=== PATIENT | female | born 1985 | race Caucasian/White ===

== ENCOUNTER 2019-11-29 04:45 | Emergency (ER) | payer BC, OTHER ==
[2019-11-29 06:08] LABS: Absolute Lymphocytes (CBC) 1.9 K/uL (0.7-4.9); Basophils % 0.9 % (0-1.3); Hematocrit 39.2 % (36.0-45.0); Lymphocytes % 20.4 % (15.3-44.8); MPV 8.2 fL (7.6-11.3); RBC Red Blood Cell Count 4.52 M/uL (3.86-4.86)
[2019-11-29 06:35] LABS: ALT/SGPT 17 U/L (12-78); AST/SGOT 13 U/L (15-37); Albumin 4.1 g/dL (3.4-5.0); Alkaline Phosphatase 73 U/L (45-117); BUN Blood Urea Nitrogen 12 mg/dL (7-18); Bicarbonate 26 mmol/L (21-32); Bilirubin Direct < 0.1 mg/dL (0-0.2); Bilirubin Total 0.2 mg/dL (0.2-1.0); Glucose Level 110 mg/dL (74-106); Lipase 192 U/L (73-393); Potassium 3.8 mmol/L (3.5-5.1); Protein, Total 7.9 g/dL (6.4-8.2); Sodium Level 141 mmol/L (136-145)
[2019-11-29 07:09] LABS: Urine Blood 2+ (NEG); Urine Glucose NEGATIVE (NEG); Urine Protein NEGATIVE (NEG); Urine pH 5.5 (5.0-7.0)
[2019-11-29] MEDS ORDERED: ONDANSETRON 4 MG/2 ML VIAL ONE ×2 (07:37→09:13)
[2019-11-29] MEDS ORDERED: MORPHINE 4 MG/ML SYR ONE ×2 (07:37→09:13)
--- NOTE | 2019-11-29 08:47 | RAD REPORT ---
EXAM DESCRIPTION: US - Abdomen Exam Limited - 11/29/2019 7:35 am CLINICAL HISTORY: ABD PAIN COMPARISON: No comparisons FINDINGS: The gallbladder demonstrates tiny stones in the gallbladder fundal region. No pericholecys tic fluid or gallbladder wall thickening. The common bile duct is normal measuring 3 mm. The liver demonstrates no findings of intrahepatic biliary dilatation. IMPRESSION: Cholelithiasis without sonographic findings of acute cholecystitis.
--- NOTE | 2019-11-29 08:48 | RAD REPORT ---
EXAM DESCRIPTION: CTAbdomen Pelvis W Contrast - 11/29/2019 7:11 am CLINICAL HISTORY: Abdominal pain. ABD PAIN COMPARISON: CT ABD PELVIS W CONTRAST dated 03/26/2015; CT ABD PELVIS W CONTRAST dated 03/19/2014 TECHNIQUE: Biphasic CT imaging of the abdomen and pelvis was performed with 100 ml non-ionic IV cont rast. All CT scans are performed using dose optimization technique as appropriate and may include automated exposure control or mA/KV adjustment according to patient size. FINDINGS: The lung bases are clear.Cholelithiasis The liver, spleen, pancreas, adrenal glands and kidneys are within normal limits. No bowel obstruction, free air, free fluid or abscess. The appendix is normal. No evidence of signi ficant lymphadenopathy. No suspicious bony findings. IMPRESSION: Cholelithiasis.
--- NOTE | 2019-11-29 08:57 | ER ---
Nurse's Notes [facility] Name: Qing Londono Age: 34 yrs Sex: Female : 1985 Arrival Date: 11/29/2019 Time: 04:47 Bed 6 Private MD: Diagnosis: Cholelithiasis Presentation: 11/28 05:42 Chief complaint: Patient states: C/O RUQ pain nightly that started three days ago. wh Associated symptoms nausea, vomiting and diarrhea. Pt also with cough and states is positive for Covid. Coronavirus screen: Surgical mask placed on patient. Patient moved to private room, placed in contact and droplet isolation with eye protection until further assessment. Patient reports a cough. Patient denies shortness of breath or difficulty breathing. Patient denies measured and/or subjective temperature greater than 100.4F prior to today's visit. Patient denies travel on a cruise ship or to a country the [facility] currently lists as an affected area. Patient reports contact with known and/or suspected case of COVID-19. Ebola Screen: Patient negative for fever greater than or equal to 101.5 degrees Fahrenheit, and additional compatible Ebola Virus Disease symptoms Patient denies exposure to infectious person. Initial Sepsis Screen: Does the patient meet any 2 criteria? No. Patient's initial sepsis screen is negative. Does the patient have a suspected source of infection? Yes: Acute abdominal pain. Risk Assessment: Do you want to hurt yourself or someone else? Patient reports no desire to harm self or others. Onset of symptoms was November 29, 2019. 05:42 Method Of Arrival: Ambulatory 05:42 Acuity: JODIE 3 Triage Assessment: 05:47 GI: Reports upper abdominal pain, bloating, nausea, vomiting. 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 - Social history:: Smoking status: Patient uses alcohol, occasionally. Patient/guardian denies using. Screenin:45 Abuse screen: Denies threats or abuse. Denies injuries from another. Nutritional screening: No deficits noted. Tuberculosis screening: No symptoms or risk factors identified. Fall Risk None identified. Assessment: 05:46 General: Appears in no apparent distress. Behavior is calm, cooperative, appropriate for age. Pain: Complains of pain in right upper quadrant Pain does not radiate. Pain currently is 8 out of 10 on a pain scale. Quality of pain is described as sharp, Pain began 2-3 days ago. Neuro: Level of Consciousness is awake, alert, obeys commands, Oriented to person, place, time, situation, Appropriate for age. Cardiovascular: Capillary refill < 3 seconds. Respiratory: Airway is patent Respiratory effort is even, unlabored, Respiratory pattern is regular, symmetrical. GI: Abdomen is flat, non-distended, Abd is soft Abdomen is tender to palpation in right upper quadrant Reports upper abdominal pain, bloating, diarrhea, nausea, vomiting. : No deficits noted. EENT: No deficits noted. Derm: Skin is intact, is healthy with good turgor, Skin is pink, warm \T\ dry. normal. Musculoskeletal: Circulation, motion, and sensation intact. 07:04 Reassessment: Patient appears in no apparent distress at this time. No changes from previously documented assessment. Patient and/or family updated on plan of care and expected duration. Pain level reassessed. Patient is alert, oriented x 3, equal unlabored respirations, skin warm/dry/pink. 08:00 Reassessment: Patient appears in no apparent distress at this time. Patient and/or em family updated on plan of care and expected duration. Pain level reassessed. Patient is alert, oriented x 3, equal unlabored respirations, skin warm/dry/pink. Vital Signs: 05:42 BP 149 / 99; Pulse 58; Resp 18; Temp 98.3; Pulse Ox 97% ; Weight 103.42 kg; Height 5 wh ft. 6 in. (167.64 cm); Pain 8/10; 07:04 BP 143 / 86; Pulse 55; Resp 18; Pulse Ox 99% on R/A; 07:30 BP 142 / 91; Pulse 57; Resp 18; Pulse Ox 99% on R/A; Pain 8/10; em 05:42 Body Mass Index 36.80 (103.42 kg, 167.64 cm) ED Course: 04:47 Patient arrived in ED. cl3 05:28 Zach Clayton is Primary Nurse. wh 05:45 Triage completed. wh 05:47 Arm band placed on right wrist. wh 05:48 Patient has correct armband on for positive identification. Placed in gown. Bed in low wh position. Call light in reach. Side rails up X 1. Pulse ox on. NIBP on. 05:50 Inserted saline lock: 20 gauge in left antecubital area, using aseptic technique. Blood rr5 collected. 06:00 Deepa Raymond [facility]C [facility]. kb 06:00 Devan Salamanca MD is Attending Physician. kb 07:11 CT Abd/Pelvis - IV Contrast Only In Process Unspecified. EDMS 07:35 US Abdomen Limited In Process Unspecified. EDMS 09:16 No provider procedures requiring assistance completed. IV discontinued, intact, em bleeding controlled, No redness/swelling at site. Pressure dressing applied. Administered Medications: 07:35 Drug: Zofran (Ondansetron) 4 mg Route: IVP; Site: left antecubital; em 08:10 Follow up: Response: No adverse reaction; Marked relief of symptoms em 07:37 Drug: morphine 4 mg Route: IVP; Site: left antecubital; em 08:10 Follow up: Response: No adverse reaction; Marked relief of symptoms; Pain is decreased; em RASS: Alert and Calm (0) 09:10 Drug: Zofran (Ondansetron) 4 mg Route: IVP; Site: left antecubital; em 09:18 Follow up: Response: Medication administered at discharge. em 09:12 Drug: morphine 4 mg Route: IVP; Site: left antecubital; em 09:17 Follow up: Response: Medication administered at discharge. em Outcome: 08:57 Discharge ordered by . kb 09:16 Discharged to home ambulatory. em 09:16 Condition: good 09:16 Discharge instructions given to patient, Instructed on discharge instructions, follow up and referral plans. medication usage, Demonstrated understanding of instructions, follow-up care, medications, Prescriptions given X 2. 09:24 Patient left the ED. em Addendum: 12/02/2019 15:40 Addendum: COVID-19 Result: Negative result given to RN to notify pt. Contacted by: Gideon Hicks RN. Notified pt of negative COVID 19 swab results. Pt advised that even with a negative test result they should remain in isolation until symptom free for 3 days without medication. Pt also advised to return to the ED for worsening symptoms. Signatures: Dispatcher [employer] Deepa Espino FNP-C FNP-Lillian Rodriguez, RN RN dm5 Papito Davis, RN Zach Chi Madan Lua RN RN rr5 Chad Mancini cl3 Corrections: (The following items were deleted from the chart) 11/28 05:47 05:46 GI: Abdomen is flat, non-distended, Abd is soft Abdomen is tender to palpation in right upper quadrant
--- NOTE | 2019-11-29 08:57 | EDPHYS ---
Physician Documentation [facility] Name: Qing Londono Age: 34 yrs Sex: Female : 1985 Arrival Date: 11/29/2019 Time: 04:47 Bed 6 Private MD: ED Physician Devan Salamanca HPI: 11/28 07:18 This 34 yrs old Female presents to ER via Ambulatory with complaints of Side kb Pain, Nausea/Vomiting. 07:50 The patient presents with abdominal pain in the right upper quadrant, right lower kb quadrant. Onset: The symptoms/episode began/occurred 3 day(s) ago. The symptoms do not radiate. Associated signs and symptoms: Pertinent positives: nausea, vomiting, and diarrhea. The symptoms are described as intermittent. Modifying factors: The symptoms are alleviated by nothing, the symptoms are aggravated by nothing. Severity of pain: At its worst the pain was moderate in the emergency department the pain is unchanged. The patient has not experienced similar symptoms in the past. The patient has not recently seen a physician. Pt reports right sided abd pain that started 3 days ago, has been worse at night. Last night pain was constant and never went away so she came in. Has had diarrhea for 3 days, nausea and vomiting started last night. Pt also reports slight cough, is COVID positive and she has been caring for him. [employer]: 05:47 LMP 11/29/2019 Historical: - Allergies: 05:45 No Known Allergies; - Home Meds: 05:45 None [Active]; - PMHx: 05:45 None; - PSHx: 05:45 Tubal ligation; - Immunization history:: Adult Immunizations up to date. - Social history:: Smoking status: Patient uses alcohol, occasionally. Patient/guardian denies using. ROS: 07:53 Constitutional: Negative for fever, chills, and weight loss, Neck: Negative for injury, kb pain, and swelling, Cardiovascular: Negative for chest pain, palpitations, and edema, Back: Negative for injury and pain, MS/Extremity: Negative for injury and deformity, Skin: Negative for injury, rash, and discoloration, Neuro: Negative for headache, weakness, numbness, tingling, and seizure. 07:53 Respiratory: Positive for cough, Negative for dyspnea on exertion, hemoptysis, orthopnea, pleurisy, shortness of breath, sputum production, wheezing. 07:53 Abdomen/GI: Positive for abdominal pain, nausea, vomiting, and diarrhea. Exam: 07:53 Constitutional: This is a well developed, well nourished patient who is awake, alert, kb and in no acute distress. Head/Face: Normocephalic, atraumatic. Chest/axilla: Normal chest wall appearance and motion. Nontender with no deformity. No lesions are appreciated. Cardiovascular: Regular rate and rhythm with a normal S1 and S2. No gallops, murmurs, or rubs. Normal PMI, no JVD. No pulse deficits. Respiratory: Lungs have equal breath sounds bilaterally, clear to auscultation and percussion. No rales, rhonchi or wheezes noted. No increased work of breathing, no retractions or nasal flaring. Skin: Warm, dry with normal turgor. Normal color with no rashes, no lesions, and no evidence of cellulitis. MS/ Extremity: Pulses equal, no cyanosis. Neurovascular intact. Full, normal range of motion. Neuro: Awake and alert, GCS 15, oriented to person, place, time, and situation. Cranial nerves II-XII grossly intact. Motor strength 5/5 in all extremities. Sensory grossly intact. Cerebellar exam normal. Normal gait. 07:53 Abdomen/GI: Inspection: abdomen appears normal, Bowel sounds: normal, in all quadrants, Palpation: soft, in all quadrants, moderate abdominal tenderness, in the right upper quadrant and right lower quadrant. Vital Signs: 05:42 BP 149 / 99; Pulse 58; Resp 18; Temp 98.3; Pulse Ox 97% ; Weight 103.42 kg; Height 5 wh ft. 6 in. (167.64 cm); Pain 8/10; 07:04 BP 143 / 86; Pulse 55; Resp 18; Pulse Ox 99% on R/A; wh 07:30 BP 142 / 91; Pulse 57; Resp 18; Pulse Ox 99% on R/A; Pain 8/10; em 05:42 Body Mass Index 36.80 (103.42 kg, 167.64 cm) MDM: 06:01 Patient medically screened. kb 07:52 Data reviewed: vital signs, nurses notes. Data interpreted: Pulse oximetry: on room air kb is 99 %. Interpretation: normal. 08:56 Counseling: I had a detailed discussion with the patient and/or guardian regarding: the kb historical points, exam findings, and any diagnostic results supporting the discharge/admit diagnosis, lab results, radiology results, the need for outpatient follow up, a general surgeon, to return to the emergency department if symptoms worsen or persist or if there are any questions or concerns that arise at home. 11/28 05:39 Order name: Basic Metabolic Panel; Complete Time: 06:39 rr5 11/28 05:39 Order name: CBC with Diff; Complete Time: 06:13 rr5 11/28 05:39 Order name: Hepatic Function; Complete Time: 06:39 rr5 11/28 05:39 Order name: Lipase; Complete Time: 06:39 rr5 11/28 05:48 Order name: Urine Dipstick--Ancillary (enter results); Complete Time: 07:13 mw2 11/28 05:48 Order name: Urine --Ancillary (enter results); Complete Time: 07:13 mw2 11/28 05:39 Order name: IV Saline Lock; Complete Time: 05:48 rr5 11/28 06:19 Order name: CT Abd/Pelvis - IV Contrast Only; Complete Time: 08:56 kb 11/28 06:19 Order name: US Abdomen Limited; Complete Time: 08:56 kb 11/28 07:34 Order name: COVID-19 ss 11/28 05:39 Order name: Labs collected and sent; Complete Time: 05:48 rr5 11/28 05:42 Order name: Urine Dipstick-Ancillary (obtain specimen); Complete Time: 05:48 wh 11/28 05:42 Order name: Urine Test (obtain specimen); Complete Time: 05:48 wh Administered Medications: 07:35 Drug: Zofran (Ondansetron) 4 mg Route: IVP; Site: left antecubital; em 08:10 Follow up: Response: No adverse reaction; Marked relief of symptoms em 07:37 Drug: morphine 4 mg Route: IVP; Site: left antecubital; em 08:10 Follow up: Response: No adverse reaction; Marked relief of symptoms; Pain is decreased; em RASS: Alert and Calm (0) 09:10 Drug: Zofran (Ondansetron) 4 mg Route: IVP; Site: left antecubital; em 09:18 Follow up: Response: Medication administered at discharge. em 09:12 Drug: morphine 4 mg Route: IVP; Site: left antecubital; em 09:17 Follow up: Response: Medication administered at discharge. em Disposition: 11/29 01:35 Co-signature as Attending Physician, Devan Salamanca MD. [email or web address] Disposition: 11/29/19 08:57 Discharged to Home. Impression: Cholelithiasis. - Condition is Stable. - Discharge Instructions: Cholelithiasis, [id number]. - Prescriptions for Bentyl 20 mg Oral Tablet - take 1 tablet by ORAL route every 6 hours As needed; 20 tablet. Zofran 4 mg Oral Tablet - take 1 tablet by ORAL route every 6 hours As needed; 20 tablet. - Medication Reconciliation Form, Thank You Letter, Antibiotic Education, Prescription Opioid Use form. - Follow up: Emergency Department; When: As needed; Reason: Worsening of condition. Follow up: Private Physician; When: 2 - 3 days; Reason: Recheck today's complaints, Continuance of care, Re-evaluation by your physician. Signatures: Dispatcher [employer] EDDeepa Schroeder, FRONT CLERK-C FRONT CLERK-CkPapito Camara, RN RN Zach Clayton Raymond RN RN 5 Devan Salamanca MD MD [facility] [place] Corrections: (The following items were deleted from the chart) 11/28 07:53 07:50 Pt reports right sided abd pain that started 3 days ago, has been worse at night. kb Last night pain was constant and never went away so she came in. Has had diarrhea for 3 days, nausea and vomiting started last night. kb 09:24 08:57 11/29/2019 08:57 Discharged to Home. Impression: Cholelithiasis. Condition is em Stable. Discharge Instructions: Cholelithiasis, [id number]. Prescriptions for Bentyl 20 mg Oral Tablet - take 1 tablet by ORAL route every 6 hours As needed; 20 tablet, Zofran 4 mg Oral Tablet - take 1 tablet by ORAL route every 6 hours As needed; 20 tablet. and Forms are Medication Reconciliation Form, Thank You Letter, Antibiotic Education, Prescription Opioid Use. Follow up: Emergency Department; When: As needed; Reason: Worsening of condition. Follow up: Private Physician; When: 2 - 3 days; Reason: Recheck today's complaints, Continuance of care, Re-evaluation by your physician. kb
[2019-11-29 09:32] VITALS: TEMP 98.3
[2019-11-29 09:33] VITALS: O2SAT 99
[2019-11-29 09:35] VITALS: BP 142/91
== END 2019-11-29 09:24 | disposition home or self-care (01) ==
LOC: ER 04:45
DX: K80.20 Calculus of gallbladder without cholecystitis without obstruction (principal); Z20.828 Contact with and (suspected) exposure to other viral communicable diseases
CPT/HCPCS: 85025; 80048; 36415; 81025; 80076; 81003; 83690; 74177; 76705; 96375; 96374; 99284; Q9967; J2405 ×2

== ENCOUNTER 2019-12-06 12:55 | Observation (INO) | payer OTHER ==
[2019-12-06] MEDS ORDERED: FENTANYL CITR 100 MCG/2 ML ONE ×2 (13:33→14:42)
[2019-12-06] MEDS ORDERED: dexAMETHasone 10 MG/ML VIAL ONE (13:33)
[2019-12-06] MEDS ORDERED: MIDAZOLAM HCL 2 MG/2 ML INJ ONE (13:33)
[2019-12-06] MEDS ORDERED: propofoL 200 MG/20 ML VIAL IV ONE (13:33)
[2019-12-06] MEDS ORDERED: LIDOCAINE 2% MPF 5 ML VIAL ONE (13:34)
[2019-12-06] MEDS ORDERED: ROCURONIUM 50 MG/5 ML VIAL IV ONE (13:35)
[2019-12-06] MEDS ORDERED: ONDANSETRON 4 MG/2 ML VIAL ONE ×2 (13:35→15:54)
[2019-12-06] MEDS ORDERED: Ringers Lactate 1,000 ML IV ONE ×2 (13:39→15:38)
[2019-12-06] MEDS ORDERED: CEFOXITIN/SWI 1gm 1 GM/10 ML SYR ONE (13:39)
--- NOTE | 2019-12-06 13:55 | P.HP ---
Date of Service: 12/06/19 PC: This 34-year-old female presents for a laparoscopic cholecystectomy with cholangiogram. HPC: Patient has been experiencing what upper quadrant abdominal pain, radiating into her back, for the last 7 days. Seen in the emergency room last week or workup showed she had cholelithiasis but no obvious evidence of cholelithiasis. Since then she has been in continuous pain, unrelieved by the medication she was discharged from the ER with. I saw her today in my office and suspect she may have a stone stuck in here Elissa's pouch. Ultrasound documents stones as the CT from last Monday. PMH: Negative PSHx: Previous tubal ligation SOC: No known allergies SYS REVIEW: No cough, wheeze, shortness of breath. No chest pain or palpitations. No urinary complaints O/E awake alert very uncomfortable vital signs are stable HEENT: Not jaundiced Chest: Air entry equal bilaterally ABD: Tender in the right upper quadrant LOCO: Intact DATA: Has documented gallstones IMPRESSION: Cholelithiasis with biliary colic PLAN: I will take her the operating room for laparoscopic cholecystectomy with cholangiogram. The risks of this procedure have been discussed. The possibility of bleeding, infection, injury to bile ducts blood vessels intestines has been described. The possible need for an open and/or further surgeries and procedures was described. She understands and wants us to proceed.
[2019-12-06] MEDS ORDERED: GLYCOPYRROLATE 0.2 MG/ML SYR ONE (14:52)
[2019-12-06] MEDS ORDERED: NEOSTIGMINE 1 MG/ML -5 ML ONE (14:52)
--- NOTE | 2019-12-06 15:17 | P.OP ---
Preoperative diagnosis: Cholecystitis with cholelithiasis Postoperative diagnosis: The same Primary procedure: Laparoscopic cholecystectomy Secondary procedure: Cholangiogram Anesthesia: General Estimated blood loss: Less than 10 cc Specimen: 1 gallbladder and contents Operative Technique: The patient brought the operating room placed supine on the table. After the induction of adequate general endotracheal anesthesia, the area of the abdomen was prepped with a DuraPrep solution, and she was draped in usual aseptic manner. A subumbilical incision was made. This brought down through the skin and subcutaneous tissue. The Visiport was now used to enter the peritoneal cavity and created pneumoperitoneum to approximately 12 mm of mercury. The placement was then placed in reverse Trendelenburg and rolled to the left. Under direct vision a 5 mm trocar was placed in the upper midline, and 2 other 5 mm trocars on the right lateral side of the abdomen. On visualization of the right upper quadrant we could see a large redundant gallbladder. It appeared to be injected with evidence of acute inflammation. A grasper was placed on the fundus of the gallbladder. Another was placed down by Elissa's pouch. Using gentle dissection and judicious use of the electro cautery we were able to dissect down and expose the cystic duct and artery. Having obtained the critical view a clip was placed between the gallbladder and the cystic duct. An opening was made into the cystic duct through which we attempted to obtain an intraoperative cholangiogram. Insertion of a catheter into the cystic duct was difficult due to the amount of the bowel so the patient had. We were finally able to wedge it in place and obtained a cholangiogram. The cholangiogram demonstrated the extrahepatic biliary tree however did not show flow contrast into the duodenum. A 2nd attempt was made however I cannot generate enough pressure due to the tenuous insertion of the cholangiocatheter. We did not see any obvious filling defects, no round off of the extrahepatic biliary tree. Hence this portion of the procedure was concluded and the catheter was removed. Attention was now turned towards the cystic duct. 2 clips were placed distally to control the cystic duct. Another clip was placed across the cystic artery which was now divided. Dissection of the gallbladder was time to remove it from the liver bed. It was then placed into an Endo-Catch and brought out through the umbilical trocar site. Once again we inspected the peritoneal cavity. No other gross intra-abdominal pathology was noted. The air the right upper quadrant was aspirated of the irrigating effluent and extravasated contrast that had pooled during the case. The liver bed was inspected to ensure adequate hemostasis. At this point attention was turned towards the emboli kiss with a 5 mm camera in the upper midline. The facile defect was approximated using the Endo Close an absorbable suture. At this point the pneumoperitoneum was collapsed, the trocars removed, and the suture tied. Tonya were then applied to the skin. At the end of the procedure she was stable when sent to the recovery room. Needle sponge instrument count were correct. No drains were placed. Complications: None Transferred to: Recovery Room Condition: Good
[2019-12-06] MEDS: HYDROMORPHONE HCL 2 MG/ML inj ONE ×4 (15:20→15:35)
[2019-12-06] MEDS ORDERED: KETOROLAC 30 MG/ML INJ ONE ×2 (15:31)
[2019-12-06] MEDS: HYDROMORPHONE HCL 1 MG/ML INJ ONE ×2 (15:46→15:51)
--- NOTE | 2019-12-06 16:09 | RAD REPORT ---
EXAM DESCRIPTION: RAD - Cholangiogram Oper-Xray Or - 12/06/2019 4:00 pm CLINICAL HISTORY: LAP ARELIS WITH IOC COMPARISON: Abdomen Exam Limited dated 11/29/2019 FINDINGS: Cystic duct injection was performed by operating surgeon. Common duct is not dilated. No r etained stone. Total fluoro time: 0.1 minutes. Three fluoroscopic images are submitted. IMPRESSION: No retained common duct stone seen.
[2019-12-06 17:10] VITALS: BMI 37.9
[2019-12-06] MEDS: NA CHLORIDE 0.9% 1,000 ML IV SCH ×2 (17:13→23:30)
[2019-12-06] MEDS: MORPHINE 4 MG/ML SYR IV PRN ×3 (17:14→23:07)
[2019-12-06] MEDS: ONDANSETRON 4 MG/2 ML VIAL IV PRN (19:18)
[2019-12-06] MEDS: HYDROCODONE/APAP 7.5/325 MG TAB PO PRN (19:21)
[2019-12-06 23:55] VITALS: O2SAT 95
[2019-12-07] MEDS: MORPHINE 4 MG/ML SYR IV PRN ×3 (01:04→08:13)
[2019-12-07] MEDS: ONDANSETRON 4 MG/2 ML VIAL IV PRN (01:05)
[2019-12-07] MEDS: HYDROCODONE/APAP 7.5/325 MG TAB PO PRN (06:38)
[2019-12-07] MEDS: NA CHLORIDE 0.9% 1,000 ML IV SCH (06:45)
[2019-12-07 12:08] VITALS: BP 127/73; TEMP 98.2
== END 2019-12-07 12:12 | disposition home or self-care (01) ==
LOC: OR 12:55 → 2ND 16:42
PROVIDERS: ADMIT Surgery; ATTEND Surgery
PROC: BF0CYZZ Plain Radiography of Hepatobiliary System, All using Other Contrast (ICD-10-PCS; 2019-12-06)
PROC: 0FT44ZZ Resection of Gallbladder, Percutaneous Endoscopic Approach (ICD-10-PCS; principal; 2019-12-06 13:00)
DX: K80.10 Calculus of gallbladder with chronic cholecystitis without obstruction (principal)
CPT/HCPCS: 81025; 88304; 74300; 47563; U0002; J2704; J2250; J1170 ×2; J3010 ×2; J1100; J2710; J7120 ×2; J7030 ×3; J2405 ×4; G0379; G0378 ×3

== ENCOUNTER 2020-02-26 17:56 | Inpatient (IN) | payer OTHER ==
[2020-02-26 18:42] LABS: Absolute Lymphocytes (CBC) 1.8 K/uL (0.7-4.9); Basophils % 0.4 % (0-1.3); Hematocrit 36.1 % (36.0-45.0); Lymphocytes % 11.9 % (15.3-44.8)
[2020-02-26] MEDS ORDERED: KETOROLAC 30 MG/ML INJ ONE (18:44)
[2020-02-26 19:01] LABS: ALT/SGPT 15 U/L (12-78); AST/SGOT 10 U/L (15-37); Albumin 3.9 g/dL (3.4-5.0); Alkaline Phosphatase 76 U/L (45-117); BUN Blood Urea Nitrogen 10 mg/dL (7-18); Bicarbonate 29 mmol/L (21-32); Bilirubin Direct < 0.1 mg/dL (0-0.2); Bilirubin Total 0.3 mg/dL (0.2-1.0); Glucose Level 91 mg/dL (74-106); Lipase 172 U/L (73-393); Potassium 3.9 mmol/L (3.5-5.1); Protein, Total 7.9 g/dL (6.4-8.2); Sodium Level 142 mmol/L (136-145)
--- NOTE | 2020-02-26 19:33 | RAD REPORT ---
EXAM DESCRIPTION: CTAbdomen Pelvis W Contrast - 02/26/2020 7:18 pm CLINICAL HISTORY: Abdominal pain. ABD PAIN COMPARISON: Abdomen Pelvis W Contrast dated 11/29/2019; CT ABD PELVIS W CONTRAST dated 03/26/2015; C T ABD PELVIS W CONTRAST dated 03/19/2014 TECHNIQUE: Biphasic CT imaging of the abdomen and pelvis was performed with 100 ml non-ionic IV cont rast. All CT scans are performed using dose optimization technique as appropriate and may include automated exposure control or mA/KV adjustment according to patient size. FINDINGS: The lung bases are clear.Cholecystectomy clips. The liver, spleen, pancreas, adrenal glands and kidneys are within normal limits. No bowel obstruction, free air, free fluid or abscess. There is moderate inflammation surrounding pro minent diverticula in the descending colon region. The appendix is normal. No evidence of significan t lymphadenopathy. No suspicious bony findings. IMPRESSION: Focal acute diverticulitis of the descending colon suspected. No abscess or other compli cation. Suggest followup colonoscopy after appropriate treatment for further evaluation.
--- NOTE | 2020-02-26 19:53 | ER ---
Nurse's Notes [facility] Name: Qing Londono Age: 35 yrs Sex: Female : 1985 Arrival Date: 02/26/2020 Time: 17:59 Bed 15 Private MD: Diagnosis: Diverticulitis of large intestine without perforation or abscess without bleeding Presentation: 02/25 18:07 Chief complaint: Patient states: left side pain X 3 days, like where her ovaries are, iw getting worse, taking OTC meds with no relief, started vomiting from pain this afternoon , no urinary s/s, denies vaginal bleeding. Ebola Screen: Patient negative for fever greater than or equal to 101.5 degrees Fahrenheit, and additional compatible Ebola Virus Disease symptoms Patient denies exposure to infectious person. Patient denies travel to an Ebola-affected area in the 21 days before illness onset. No symptoms or risks identified at this time. Initial Sepsis Screen: Does the patient meet any 2 criteria? No. Patient's initial sepsis screen is negative. Does the patient have a suspected source of infection? No. Patient's initial sepsis screen is negative. Risk Assessment: Do you want to hurt yourself or someone else? Patient reports no desire to harm self or others. 18:07 Method Of Arrival: Ambulatory iw 18:07 Acuity: JODIE 3 iw 18:07 Coronavirus screen: vomiting. Onset of symptoms was February 23, 2020. 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 - Social history:: Smoking status: Patient denies any tobacco usage or history of. Screenin:21 Abuse screen: Denies threats or abuse. Nutritional screening: No deficits noted. tw2 Tuberculosis screening: No symptoms or risk factors identified. Fall Risk None identified. Assessment: 18:15 General: Appears in no apparent distress. uncomfortable, obese, well groomed, Behavior tw2 is calm, cooperative, appropriate for age. Pain: Complains of pain in left lower quadrant. Neuro: Level of Consciousness is awake, alert, obeys commands, Oriented to person, place, time, situation. Cardiovascular: Heart tones S1 S2 Patient's skin is warm and dry. Respiratory: Airway is patent Respiratory effort is even, unlabored, Respiratory pattern is regular, symmetrical, Breath sounds are clear bilaterally. GI: Abdomen is round non-distended, obese, Bowel sounds present X 4 quads. Reports lower abdominal pain. : No signs and/or symptoms were reported regarding the genitourinary system. EENT: No signs and/or symptoms were reported regarding the EENT system. Derm: No signs and/or symptoms reported regarding the dermatologic system. Musculoskeletal: Range of motion: intact in all extremities. 18:21 Reassessment: provider at bedside at this time. tw2 20:18 Reassessment: Patient and/or family updated on plan of care and expected duration. Pain ll2 level reassessed. Patient is alert, oriented x 3, equal unlabored respirations, skin warm/dry/pink. morphine and zophran helped relieve pain, pt updated on approximate hold time as in patient. Vital Signs: 18:07 BP 143 / 104; Pulse 87; Resp 16; Pulse Ox 100% on R/A; Weight 108.86 kg; Height 5 ft. 6 iw in. (167.64 cm); Pain 9/10; 19:00 BP 152 / 79; Pulse 89; Resp 16; Pulse Ox 100% on R/A; tw2 20:19 BP 135 / 88; Pulse 82; Resp 17; Pulse Ox 100% on R/A; ll2 18:07 Body Mass Index 38.74 (108.86 kg, 167.64 cm) iw ED Course: 17:59 Patient arrived in ED. as 18:09 Triage completed. iw 18:10 Arm band placed on. iw 18:12 Bed in low position. Call light in reach. tw2 18:15 Jamar Rodas PA is PHCP. jr8 18:15 Iker Cole MD is Attending Physician. jr8 18:21 Mariely Hall, PRABHU is Primary Nurse. tw2 18:30 Urine Dipstick--Ancillary (enter results) Sent. mh5 18:30 Urine --Ancillary (enter results) Sent. 5 18:36 Initial lab(s) drawn, by me, sent to lab. Inserted saline lock: 20 gauge in right iw antecubital area, using aseptic technique. Blood collected. 19:05 Report given to PRABHU Ma. tw2 19:18 CT Abd/Pelvis - IV Contrast Only In Process Unspecified. EDMS 19:53 Araseli Paulino MD is Hospitalizing Provider. jr8 Administered Medications: 18:38 Drug: TORadol - Ketorolac 15 mg Route: IVP; Site: right antecubital; tw2 20:10 Follow up: Response: No adverse reaction ll2 20:09 Drug: Flagyl 500 mg Volume: 100 ml; Route: IVPB; Rate: 200 ml/hr; Infused Over: 30 ll2 mins; Site: right antecubital; 20:09 Drug: morphine 4 mg Route: IVP; Site: right antecubital; ll2 20:09 Follow up: Response: No adverse reaction ll2 20:09 Drug: Zofran (Ondansetron) 4 mg Route: IVP; Site: right antecubital; ll2 20:54 Follow up: Response: No adverse reaction ll2 20:10 Drug: Cipro 400 mg Volume: 200 ml; Route: IVPB; Infused Over: 60 mins; Site: right ll2 antecubital; 20:54 Drug: morphine 4 mg Route: IVP; Site: right antecubital; ll2 20:54 Follow up: Response: No adverse reaction; RASS: Alert and Calm (0) ll2 Outcome: 19:53 Decision to Hospitalize by Provider. jr8 21:22 Patient left the ED. mw2 Signatures: Dispatcher [employer] EDMS Maryam Mejia Irene RN RN Jamar Rodas PA PA jr8 Mariely Hall RN RN 2 Rosy Mejia [facility] Rhina Bragg mw2 Irma Morrison RN RN 2 Corrections: (The following items were deleted from the chart) 18:11 18:07 BP 143 / 104; Pulse 87bpm; Resp 16bpm; Pulse Ox 100% RA; [facility] 19:14 19:14 Report given to PRABHU Ma tw2 tw2
--- NOTE | 2020-02-26 19:53 | EDPHYS ---
Physician Documentation [facility] Name: Qing Londono Age: 35 yrs Sex: Female : 1985 Arrival Date: 02/26/2020 Time: 17:59 Bed 15 Private MD: ED Physician Iker Cole HPI: 02/25 18:52 This 35 yrs old Female presents to ER via Ambulatory with complaints of jr8 Abdominal Pain. 18:52 The patient presents with abdominal pain in the left lower quadrant, left flank. Onset: jr8 The symptoms/episode began/occurred acutely, today. The symptoms radiate to left back, the left flank. Associated signs and symptoms: Pertinent positives: nausea. The symptoms are described as stabbing. Modifying factors: The symptoms are alleviated by nothing, the symptoms are aggravated by nothing. Severity of pain: At its worst the pain was moderate in the emergency department the pain is unchanged. The patient has not experienced similar symptoms in the past. The patient has not recently seen a physician. 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 - Social history:: Smoking status: Patient denies any tobacco usage or history of. ROS: 18:52 Eyes: Negative for injury, pain, redness, and discharge, ENT: Negative for injury, jr8 pain, and discharge, Neck: Negative for injury, pain, and swelling, Cardiovascular: Negative for chest pain, palpitations, and edema, Respiratory: Negative for shortness of breath, cough, wheezing, and pleuritic chest pain, Back: Negative for injury and pain, MS/Extremity: Negative for injury and deformity, Skin: Negative for injury, rash, and discoloration, Neuro: Negative for headache, weakness, numbness, tingling, and seizure. 18:52 Abdomen/GI: Positive for abdominal pain, nausea, Negative for vomiting, diarrhea, constipation, abdominal cramps, abdominal distension. Exam: 18:52 Eyes: Pupils equal round and reactive to light, extra-ocular motions intact. Lids and jr8 lashes normal. Conjunctiva and sclera are non-icteric and not injected. Cornea within normal limits. Periorbital areas with no swelling, redness, or edema. ENT: Nares patent. No nasal discharge, no septal abnormalities noted. Tympanic membranes are normal and external auditory canals are clear. Oropharynx with no redness, swelling, or masses, exudates, or evidence of obstruction, uvula midline. Mucous membranes moist. Neck: Trachea midline, no thyromegaly or masses palpated, and no cervical lymphadenopathy. Supple, full range of motion without nuchal rigidity, or vertebral point tenderness. No Meningismus. Cardiovascular: Regular rate and rhythm with a normal S1 and S2. No gallops, murmurs, or rubs. Normal PMI, no JVD. No pulse deficits. Respiratory: Lungs have equal breath sounds bilaterally, clear to auscultation and percussion. No rales, rhonchi or wheezes noted. No increased work of breathing, no retractions or nasal flaring. Skin: Warm, dry with normal turgor. Normal color with no rashes, no lesions, and no evidence of cellulitis. MS/ Extremity: Pulses equal, no cyanosis. Neurovascular intact. Full, normal range of motion. Neuro: Awake and alert, GCS 15, oriented to person, place, time, and situation. Cranial nerves II-XII grossly intact. Motor strength 5/5 in all extremities. Sensory grossly intact. Cerebellar exam normal. Normal gait. 18:52 Abdomen/GI: Inspection: abdomen appears normal, Bowel sounds: active, all quadrants, Palpation: soft, in all quadrants, moderate abdominal tenderness, in the anterior aspect of left lateral abdomen and left lower quadrant, mass, is not appreciated, rebound tenderness, is not appreciated, voluntary guarding, is not appreciated, involuntary guarding, is not appreciated, no appreciated organomegaly, Indicators: McBurney's point is not tender, Mark's sign is negative, Rovsing's sign is negative. 18:52 Back: pain, is absent, ROM is normal, normal spinal alignment noted, CVA tenderness, that is mild, is noted on the left. Vital Signs: 18:07 BP 143 / 104; Pulse 87; Resp 16; Pulse Ox 100% on R/A; Weight 108.86 kg; Height 5 ft. 6 iw in. (167.64 cm); Pain 9/10; 19:00 BP 152 / 79; Pulse 89; Resp 16; Pulse Ox 100% on R/A; tw2 20:19 BP 135 / 88; Pulse 82; Resp 17; Pulse Ox 100% on R/A; ll2 18:07 Body Mass Index 38.74 (108.86 kg, 167.64 cm) iw MDM: 18:15 Patient medically screened. jr8 19:52 Data reviewed: vital signs, nurses notes, lab test result(s), radiologic studies, CT jr8 scan. Data interpreted: Pulse oximetry: on room air is 100 %. Interpretation: normal. Counseling: I had a detailed discussion with the patient and/or guardian regarding: the historical points, exam findings, and any diagnostic results supporting the discharge/admit diagnosis, lab results, radiology results, the need for further work-up and treatment in the hospital. 02/25 18:21 Order name: Urine Dipstick--Ancillary (enter results); Complete Time: 14:39 bd 02/25 18:21 Order name: Urine --Ancillary (enter results); Complete Time: 14:39 bd 02/25 18:24 Order name: Basic Metabolic Panel; Complete Time: 19:15 8 02/25 18:24 Order name: CBC with Diff; Complete Time: 18:55 [facility] 02/25 18:24 Order name: Hepatic Function; Complete Time: 19:15 8 02/25 18:24 Order name: Lipase; Complete Time: 19:15 8 02/25 18:24 Order name: IV Saline Lock; Complete Time: 18:37 [facility] 02/25 18:55 Order name: CT Abd/Pelvis - IV Contrast Only; Complete Time: 19:41 8 02/25 18:24 Order name: Labs collected and sent; Complete Time: 18:37 jr8 Administered Medications: 18:38 Drug: TORadol - Ketorolac 15 mg Route: IVP; Site: right antecubital; tw2 20:10 Follow up: Response: No adverse reaction ll2 20:09 Drug: Flagyl 500 mg Volume: 100 ml; Route: IVPB; Rate: 200 ml/hr; Infused Over: 30 ll2 mins; Site: right antecubital; 20:09 Drug: morphine 4 mg Route: IVP; Site: right antecubital; ll2 20:09 Follow up: Response: No adverse reaction ll2 20:09 Drug: Zofran (Ondansetron) 4 mg Route: IVP; Site: right antecubital; ll2 20:54 Follow up: Response: No adverse reaction ll2 20:10 Drug: Cipro 400 mg Volume: 200 ml; Route: IVPB; Infused Over: 60 mins; Site: right ll2 antecubital; 20:54 Drug: morphine 4 mg Route: IVP; Site: right antecubital; ll2 20:54 Follow up: Response: No adverse reaction; RASS: Alert and Calm (0) ll2 Disposition: 02/26 07:15 Co-signature as Attending Physician, Iker Cole MD. rn Disposition: 02/26/20 19:53 Hospitalization ordered by Araseli Paulino for Inpatient Admission. Preliminary diagnosis is Diverticulitis of large intestine without perforation or abscess without bleeding. - Bed requested for Telemetry/MedSurg (Inpatient). - Status is Inpatient Admission. mw2 - Condition is Stable. - Problem is new. - Symptoms have improved. Signatures: Dispatcher [employer] EDMS Andria Mancini RN Jessica Reveles RN Iker Kee MD MD rn Roszak, Josh, PA PA jr8 Mariely Hall RN RN 2 Rhina Bragg 2 Irma Morrison RN RN 2 Corrections: (The following items were deleted from the chart) 02/25 20:43 19:53 Hospitalization Ordered by Araseli Paulino MD for Inpatient Admission. Preliminary kl diagnosis is Diverticulitis of large intestine without perforation or abscess without bleeding. Bed requested for Telemetry/MedSurg (Inpatient). Status is Inpatient Admission. Condition is Stable. Problem is new. Symptoms have improved. jr8 21:22 20:43 02/26/2020 19:53 Hospitalization Ordered by Araseli Paulino MD for Inpatient mw2 Admission. Preliminary diagnosis is Diverticulitis of large intestine without perforation or abscess without bleeding. Bed requested for Telemetry/MedSurg (Inpatient). Status is Inpatient Admission. Condition is Stable. Problem is new. Symptoms have improved. kl
[2020-02-26] MEDS ORDERED: CIPROFLOXACIN 400mg IV 400 MG/200 ML BAG IV ONE (20:01)
[2020-02-26] MEDS ORDERED: METRONIDAZOLE 500mg IVPB 500 MG/100 ML BAG IV ONE (20:01)
[2020-02-26] MEDS ORDERED: ONDANSETRON 4 MG/2 ML VIAL ONE (20:04)
[2020-02-26] MEDS ORDERED: MORPHINE 4 MG/ML SYR ONE ×2 (20:04→21:03)
[2020-02-26] MEDS ORDERED: NA CHLORIDE 0.9% 1,000 ML ONE (20:05)
[2020-02-26] MEDS: CIPROFLOXACIN 400mg IV 400 MG/200 ML BAG IV SCH (21:00)
[2020-02-26 21:20] LABS: Urine Blood NEGATIVE (NEG); Urine Glucose NEGATIVE (NEG); Urine Protein NEGATIVE (NEG); Urine Specific Gravity 1.015 (1.005-1.030)
[2020-02-26] MEDS ORDERED: ACETAMINOPHEN 500 MG TAB PO PRN (21:22)
--- NOTE | 2020-02-26 22:07 | P.HP ---
Certification for Inpatient With expected LOS: >2 Midnights Patient will require the following post-hospital care: None Practitioner: I am a practitioner with admitting privileges, knowledge of patient current condition, hospital course, and medical plan of care. Services: Services provided to patient in accordance with Admission requirements found in Title 42 Section 412.3 of the Code of Federal Regulations Patient History Date of Service: 02/26/20 Reason for admission: Acute diverticulitis History of Present Illness: 35-year-old female with a past medical history of anxiety presents to the emergency room complaining of abdominal pain mostly in the left lower quadrant. States that the symptoms started earlier this morning HIDA progressively worsened. States she has never had a problem like this before. In emergency room patient is alert and oriented x3. Patient is in no distress and she is pleasant and cooperative. CT abdomen pelvis shows acute diverticulitis. Emergency room lab work shows a white cell count of 15 K. Rest of lab work is fairly unremarkable. Vitals are blood pressure of 143/104, pulse rate of 87, respiratory rate of 16 with 100% O2 saturations on room air. Patient will be admitted and further evaluated. Allergies No Known Drug Allergies Allergy (Verified 12/06/19 16:41) Unknown Home medications list reviewed: Yes Home Medications: Dicyclomine HCl 20 mg PO Q6H PRN 12/06/19 - Past Medical/Surgical History Diabetic: No -: [place] -: tubal ligation Psychosocial/ Personal History: Lives at home with . - Family History Mother -: Heart disease, Hypertension, Diabetes - Social History Smoking Status: Never smoker Alcohol use: Yes CD- Drugs: No Caffeine use: Yes Place of Residence: Home Review of Systems General: As per HPI Eyes: Unremarkable ENT: Unremarkable Respiratory: Unremarkable Cardiovascular: Unremarkable Gastrointestinal: Nausea, Abdominal Pain, As per HPI Genitourinary: Unremarkable Musculoskeletal: Unremarkable Integumentary: Unremarkable Neurological: Unremarkable Lymphatics: Unremarkable Physical Examination - Vital Signs Blood Pressure: 135/88 Pulse: 82 Respirations: 17 Pulse Ox (%): 100 (RA) - Physical Exam General: Alert, In no apparent distress, Oriented x3 HEENT: Atraumatic, Normocephalic, PERRLA, Mucous membr. moist/pink Neck: Supple, No Thyromegaly, Other (Trachea midline) Respiratory: Clear to auscultation bilaterally, Normal air movement Cardiovascular: No edema, Normal pulses, Regular rate/rhythm, Normal S1 S2 Capillary refill: <2 Seconds Gastrointestinal: Non-distended, Tenderness Musculoskeletal: No clubbing, No swelling, No contractures, No erythema Integumentary: No rashes, No breakdown, No significant lesion Neurological: Normal gait, Normal speech, Normal strength at 5/5 x4 extr, Normal tone - Studies Laboratory Data (last 24 hrs) 02/26/20 18:34: WBC 15.0 H, Hgb 12.3, Hct 36.1, Plt Count 383 02/26/20 18:34: Sodium 142, Potassium 3.9, BUN 10, Creatinine 0.71, Glucose 91, Total Bilirubin 0.3, AST 10 L, ALT 15, Alkaline Phosphatase 76, Lipase 172 Assessment and Plan - Plan Impression: Acute diverticulitis: Anxiety: Plan: Acute diverticulitis: CT abdomen pelvis showing Focal acute diverticulitis of the descending colon suspected. No abscess or other complication. Will start patient on IV ciprofloxacin and IV Flagyl. Continue IV pain control. Keep NPO. Continue gentle IV hydration. Monitor. Anxiety: Stable so far. Will restart home medications once verified. Discharge Plan: Home Plan to discharge in: Greater than 2 days - Advance Directives Does patient have a Living Will: No Does patient have a Durable POA for Healthcare: No - Code Status/Comfort Care Code Status Assessed: Yes Time Spent Managing Pts Care (In Minutes): 55
[2020-02-26] MEDS: NA CHLORIDE 0.9% 1,000 ML IV SCH (23:15)
[2020-02-27] MEDS: MORPHINE 4 MG/ML SYR IV PRN ×5 (00:09→20:58)
[2020-02-27] MEDS: ZOLPIDEM TARTRATE 5 MG TABLET PO SCH ×2 (00:42→20:58)
[2020-02-27] MEDS ORDERED: METRONIDAZOLE 500mg IVPB 500 MG/100 ML BAG IV SCH (01:00)
[2020-02-27 03:29] VITALS: BMI 38.7
[2020-02-27] MEDS: METRONIDAZOLE 500mg IVPB 500 MG/100 ML BAG IV SCH ×3 (04:28→20:59)
[2020-02-27 06:24] LABS: Absolute Lymphocytes (CBC) 1.4 K/uL (0.7-4.9); Basophils % 0.6 % (0-1.3); Hematocrit 32.7 % (36.0-45.0); Lymphocytes % 16.2 % (15.3-44.8); MPV 8.2 fL (7.6-11.3)
[2020-02-27 06:37] LABS: BUN Blood Urea Nitrogen 9 mg/dL (7-18); Bicarbonate 27 mmol/L (21-32); Glucose Level 96 mg/dL (74-106); Potassium 3.7 mmol/L (3.5-5.1); Sodium Level 142 mmol/L (136-145)
[2020-02-27] MEDS ORDERED: KCL 20 MEQ/100 mL IVPB 20 MEQ/100 ML BAG IV SCH (09:00)
[2020-02-27] MEDS ORDERED: INFLUENZA VACCINE (for 3y+) 0.5 ML DOSE IMVAC ONE (09:00)
[2020-02-27] MEDS: NA CHLORIDE 0.9% 1,000 ML IV SCH ×2 (09:01→17:22)
[2020-02-27] MEDS: FLUOXETINE 10 MG CAP PO SCH (09:08)
[2020-02-27] MEDS: CIPROFLOXACIN 400mg IV 400 MG/200 ML BAG IV SCH ×2 (09:08→20:59)
--- NOTE | 2020-02-27 09:31 | P.PN ---
Subjective Date of Service: 02/27/20 Chief Complaint: Acute diverticulitis Subjective: Improving (Patient is still having left-sided abdominal pain. No longer vomiting. Nausea is controlled) Physical Examination - Vital Signs Temperature: 98.3 F Blood Pressure: 104/58 Pulse: 70 Respirations: 16 Pulse Ox (%): 98 - Physical Exam General: Acute distress, Mild distress, Obese HEENT: Atraumatic, Normocephalic, EOMI Neck: Supple Respiratory: Clear to auscultation bilaterally, Normal air movement Cardiovascular: No edema, Normal pulses, Regular rate/rhythm, Normal S1 S2 Gastrointestinal: Normal bowel sounds, Non-distended, Tenderness (Left lower quadrant tenderness) Musculoskeletal: No clubbing, No swelling, No contractures, No erythema, No tenderness, No warmth Integumentary: No rashes, No breakdown, No significant lesion, No tenderness/swelling, No erythema, No warmth, No cyanosis Neurological: Normal speech, Sensation intact - Studies Laboratory Data (last 24 hrs) 02/26/20 18:34: WBC 15.0 H, Hgb 12.3, Hct 36.1, Plt Count 383 02/26/20 18:34: Sodium 142, Potassium 3.9, BUN 10, Creatinine 0.71, Glucose 91, Total Bilirubin 0.3, AST 10 L, ALT 15, Alkaline Phosphatase 76, Lipase 172 Assessment & Plan - Problems (Diagnosis) (1) Acute diverticulitis Current Visit: Yes Status: Acute (2) Obesity (BMI 35.0-39.9 without comorbidity) Current Visit: Yes Status: Acute (3) Headache, chronic migraine without aura Current Visit: Yes Status: Acute Physician Review Additional Text: Assessment 35-year-old female with obesity, chronic migraine headache currently admitted with acute diverticulitis. She is responding to IV fluid infusion antibiotics. Acute diverticulitis Migraine headache Obesity Plan: Continue hospital stay for at least 1 more day Continue IV antibiotics and IV fluid infusion Continue multimodal pain regimen. I will add ketorolac for dual management of pain and headache Patient can resume home dose of migraine headache I will discharge tomorrow if symptomatically improved
[2020-02-27] MEDS: ONDANSETRON 4 MG/2 ML VIAL IV PRN ×3 (09:49→23:05)
--- NOTE | 2020-02-27 10:38 | RAD REPORT ---
EXAM DESCRIPTION: CT - Abdomen Pelvis Wo Contrast - 02/27/2020 6:52 am CLINICAL HISTORY: Acute abdominal pain TECHNIQUE: Contiguous axial images obtained through the abdomen and pelvis without IV contrast. Maycol nal and sagittal reformatted images were provided. This exam was performed according to our departmental dose-optimization program, which includes autom ated exposure control, adjustment of the mA and/or kV according to patient size and/or use of iterati ve reconstruction technique. COMPARISON: 02/26/2020 at 7: 18 PM FINDINGS: Lung bases: Right lower lobe calcified granuloma. Liver: Grossly unremarkable Gallbladder and biliary system: Prior cholecystectomy. Pancreas: Grossly unremarkable Spleen: Grossly unremarkable Adrenals: Unremarkable Kidneys: Excreted contrast is present within both renal collecting systems bilaterally on delayed rashida ges. No hydronephrosis. Bowel: Colonic diverticula are present. Focally inflamed diverticulum and mild to moderate surroundin g inflammation at the distal descending colon as seen on the prior. No obstruction. Appendix: Normal caliber appendix. No findings to suggest acute appendicitis. Urinary bladder: Excreted contrast within the urinary bladder. Reproductive: The urinary bladder is retroverted. Lymph nodes: No pathologically enlarged lymph nodes. Peritoneum: No focal fluid collection. No free air. Vessels: No abdominal aortic aneurysm. Abdominal wall: Tiny fat-containing umbilical hernia. Bones: Unremarkable IMPRESSION: 1. Findings compatible with acute diverticulitis at the distal descending colon. Mild to moderate surrounding inflammation. No extraluminal gas or discrete fluid collection. 2. Other findings as above. Electronically signed by: Louise Amaro MD 02/26/2020 10:34 PM CDT Due to temporary technical issues with the PACS/Fluency reporting system, reports are being signed by the in house radiologist without review as a courtesy to ensure prompt reporting. The interpreting r adiologist is fully responsible for the content of the report.
[2020-02-27] MEDS: KETOROLAC 30 MG/ML INJ IV SCH ×2 (12:43→19:19)
[2020-02-27] MEDS ORDERED: ZOLPIDEM TARTRATE 5 MG TABLET PO SCH (21:00)
--- OUTSIDE RECORDS SUMMARY | 2020-02-27 22:32 | XMS REPORT | Summary of Care ---
:1985 Author Organization [facility] - [facility] Address [address] [place] [address] Care Team Providers Name Role Phone Burrows Teja Carlos Primary Care Provider Reason for Visit Reason Comments New Patient right thumb and wrist pain (Routine) Status Reason Specialty Diagnoses / Referred By Referred To Procedures Contact Contact Authorized ORT-ORTHOPAEDIC Diagnoses Sprain of finger, unspecified finger, initial encounter Sprain of right wrist, initial encounter José Antonio Livingston, SURGERY / Procedures Discharge Follow-Up: Specialty Service ORT-ORTHOPAEDIC SURGERY; 1 Week CONSULT/REFERRAL ORTHOPAEDIC SURGERY [employer] ARCHITECT Orthopedic [address] [facility] [place] [address] Encounter Details Date Type Department Care Team Description 01/03/2020 Office Visit [facility] Vinay ManciniWILLI christine Injury of right hand, Orthopaedic Surgery- [address] [place] [address] in itial encounter [facility] (Primary Dx) [facility] [address] [place] [phone] Allergies No Known Allergiesdocumented as of this encounter (statuses as of 02/03/2020) Medications Medication Sig Dispensed Refills Start Date End Date Status methocarbamol Take 1 20 tablet 0 12/27/2019 Activ e (ROBAXIN-750) 750 tablet by mg mouth 4 tabletIndications: (four) times Fall, initial daily as encounter needed for Pain (scale 7-10). ibuprofen 800 mg Take 1 30 tablet 0 01/03/2020 Ac tive tabletIndications: tablet by Injury of right mouth every hand, initial 8 (eight) encounter hours as needed for Pain (scale 4-6). acetaminophen-codei Take 1 8 tablet 0 12/27/2019 ne (TYLENOL-CODEINE tablet by 0 #3) 300-30 mg mouth every tabletIndications: 4 (four) acute pain hours as needed for Pain (scale 7-10) for up to 7 days. Indications: acute pain ibuprofen 800 mg Take 1 20 tablet 0 12/27/2019 Di scontinued tabletIndications: tablet by 0 ( Reorder) Fall, initial mouth every encounter 8 (eight) hours as needed for Pain (scale 4-6). documented as of this encounter (statuses as of 02/03/2020) Active Problems Not on filedocumented as of this encounter (statuses as of 02/03/2020) Social History Tobacco Use Types Packs/Day Years Used Date Never Smoker Smokeless Tobacco: Never Used Sex Assigned at Date Recorded Not on file COVID-19 Exposure Response Date Recorded In the last month, have you been in contact with No / Unsure 12/26/2019 10:17 PM CDT someone who was confirmed or suspected to have Coronavirus / COVID-19? documented as of this encounter Last Filed Vital Signs Vital Sign Reading Time Taken Comments Blood Pressure - - Pulse - - Temperature 36.6 C (97.8 F) 01/03/2020 10:35 AM CDT Respiratory Rate - - Oxygen Saturation - - Inhaled Oxygen Concentration - - Weight 105.6 kg (232 lb 14.4 oz) 01/03/2020 10:35 AM CDT Height 167.6 cm (5' 6") 01/03/2020 10:35 AM CDT Body Mass Index 37.59 01/03/2020 10:35 AM CDT documented in this encounter Progress Notes Yolanda Mancini FNP - 01/03/2020 10:30 AM CDT Ortho Clinic Note Chief complaint: right hand pain History of Present Illness Qing Londono is a 35 year old female who presents with right hand pain. She reports she fell down thestairs and has been having pain in her right hand, thumb and wrist. She was evaluated in the ER for her injury Aggravating factors: None Relieving factors: None Denies numbness and paresthesias. No past medical history on file. No past surgical history on file. Medications: Current Outpatient Medications: ibuprofen 800 mg tablet, Take 1 tablet by mouth every 8 (eight) hours as needed for Pain (scale4-6)., Disp: 30 tablet, Rfl: 0 methocarbamol (ROBAXIN-750) 750 mg tablet, Take 1 tablet by mouth 4 (four) times daily as needed for Pain (scale 7-10)., Disp: 20 tablet, Rfl: 0 Allergies: No Known Allergies Social History: Social History Socioeconomic History Marital status: Spouse name: Not on file Number of children: Not on file Years of education: Not on file Highest education level: Not on file Occupational History Not on file Social Needs Financial resource strain: Not on file Food insecurity Worry: Not on file Inability: Not on file Transportation needs Medical: Not on file Non-medical: Not on file Tobacco Use Smoking status: Never Smoker Smokeless tobacco: Never Used Substance and Sexual Activity Alcohol use: Not on file Drug use: Not on file Sexual activity: Not on file Lifestyle Physical activity Days per week: Not on file Minutes per session: Not on file Stress: Not on file Relationships Social connections Talks on phone: Not on file Gets together: Not on file Attends mandaen service: Not on file Active member of club or organization: Not on file Attends meetings of clubs or organizations: Not on file Relationship status: Not on file Intimate partner violence Fear of current or ex partner: Not on file Emotionally abused: Not on file Physically abused: Not on file Forced sexual activity: Not on file Other Topics Concern Not on file Social History Narrative Not on file Review of Systems: Constitutional: (-) fever, (-) chills Mouth/Throat: (-) facial droop Cardiovascular: (-) chest pain, (-) palpitations Respiratory: (-) cough, (-) shortness of breath, (-) dyspnea on exertion Gastrointestinal: (-) weight loss, (-) abdominal pain, (-) nausea, (-) vomiting Musculoskeletal/Neuro: See HPI All other review of systems negative. Physical Examination: Temp 36.6 C (97.8 F) (Temporal Artery) | Ht 66" (167.6 cm) | Wt 105.6 kg (232 lb 14.4 oz) | BMI 37.59 kg/m No fever General: NAD, pleasant and cooperative Skin: No rashes, no discoloration Resp: Breathing comfortably on RA Cardiology: palpable RUE: Skin: No skin changes. Appearance of Limb: No obvious deformity. TTP: Negative Motor intact to intrinsics and extrinsics, ROM: full Sensory Intact to Light Touch, Brisk Capillary Refill Imaging: EXAM: XR FOREARM 2 VW RIGHT, EXAM: XR WRIST 3+ VW RIGHT, EXAM: XR HAND 3+ VW RIGHT HISTORY: 34 years-old Female fall COMPARISON: None. FINDINGS: Radiographs of the right forearm, wrist, and hand demonstrate no acute fracture or dislocation. The joint spaces are preserved. A remote second digit distal tuft fracture is noted. IMPRESSION No acute osseous abnormality. Preliminary Report Dictated by Resident: Farooq Quintero I, Marcin Gautam MD., have reviewed this study and agree with the above report. ASSESSMENT: Qing Londono is a 35 year old female with right hand injury PLAN: I have discussed the patient's physical exam and reviewed their x-rays and imaging with them in detail. All questions have been answered. We have talked about all the treatment options and have agreed upon: -Ibuprofen - Activity modification to minimize pain - NSAIDs prn for pain - Heat therapy prn for muscular pain before exercise - Follow up PRN - Condition and plans were discussed with patient, who expressed understanding and is agreeable to the plan. - All questions were answered, concerns addressed; risks and benefits were discussed. - Patient was instructed to schedule earlier appointment if symptoms worsen. -Restrictions: avoid heavy lifting documented in this encounter Plan of Treatment Health Maintenance Due Date Last Done Comments VARICELLA VACCINES (1 of 2 - 1987 2-dose childhood series) Depression Screening 1998 DTaP,Tdap,and Td Vaccines (1 - 2005 Tdap) PAP SMEAR 2007 INFLUENZA VACCINE (#1) 2020 PNEUMOCOCCAL 0-64 YEARS COMBINED Aged Out No longer eligible based on SERIES patient's age to complete this topic documented as of this encounter Results Not on filedocumented in this encounter Visit Diagnoses Diagnosis Injury of right hand, initial encounter - Primary documented in this encounter documented as of this encounter
--- OUTSIDE RECORDS SUMMARY | 2020-02-27 22:32 | XMS REPORT | Continuity of Care Document ---
:1985 Author Organization [facility] t Address [address] [place] [address] Care Team Providers Name Role Phone Live MOSLEY Attending Clinician Problems This patient has no known problems. Allergies, Adverse Reactions, Alerts This patient has no known allergies or adverse reactions. Medications This patient has no known medications. Procedures This patient has no known procedures. Encounters Start End Encounter Admission Attending Care Care Encounter Source Date/Time Date/Time Type Type Clinicians Facility Department ID 2020-01-03 2020-01-03 Office KIMBERLY Mancini [id number] 10:27:18 10:58:58 Visit Yolanda SPECIALTY [id number] [facility] [id number] [facility] AT [phone] ISAEL MEAD Results This patient has no known results.
--- OUTSIDE RECORDS SUMMARY | 2020-02-27 22:32 | XMS REPORT | Summary of Care ---
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 [address] [facility] [place] [address] Encounter Details Date Type Department Care Team Description 01/03/2020 Office Visit [facility] Vinay ManciniWILLI christine Injury of right hand, Orthopaedic Surgery- [address] [place] [address] in itial encounter [facility] (Primary Dx) [facility]0 [facility] [address] [place] [phone] Allergies No Known Allergiesdocumented as of this [...] file Gets together: Not on file Attends methodist service: Not on file Active member of [...]
--- OUTSIDE RECORDS SUMMARY | 2020-02-27 22:32 | XMS REPORT | Summary of Care ---
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 [address] [place] [phone] Radiology Services (STAT) Status Reason Specialty Diagnoses / Referred By Referred To Procedures Contact Contact New Request Diagnostic Diagnoses Fall, initial encounter [place], José Antonio B, Radiology Procedures XR FOREARM 2 VW RIGHT 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 [address] [place] [phone] Radiology Services (STAT) Status Reason Specialty Diagnoses / Referred By Referred To Procedures Contact Contact New Request Diagnostic Diagnoses Fall, initial encounter [place], José Antonio B, Radiology Procedures XR WRIST 3+ VW RIGHT 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 [address] [place] [phone] Radiology Services (STAT) Status Reason Specialty Diagnoses / Referred By Referred To Procedures Contact Contact New Request Diagnostic Diagnoses Fall, initial encounter [place], José Antonio B, Radiology Procedures XR HAND 3+ VW RIGHT 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 [address] [place] [phone] Reason for Visit Reason Comments Fall Auth/Cert Status Reason Specialty Diagnoses / Referred By Referred To Procedures Contact Contact Emergency Medicine [facility] Em ergency Dept [address] [place] [address] Fax: Encounter Details Date Type Department Care Team Description 12/26/2019 - Emergency ADC-Emergency José Antonio Livingston B, Fall, ini tial encounter (Primary Dx); 12/27/2019 Department 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 Contusion of finger without damage to na il, unspecified finger, initial encounter; [address] [place] [address] Sprain of finger, unspecified finger, in itial encounter; [address] [place], [place] Sprain of right wrist, initi al encounter; [place] [phone] Right upper quadrant abdominal pain [phone] Allergies No Known Allergiesdocumented as of this encounter (statuses as of 12/27/2019) Medications Medication Sig Dispensed Refills Start Date End Date Status acetaminophen-codeine Take 1 tablet 8 tablet 0 12/27/2019 Active (TYLENOL-CODEINE #3) by mouth every 300-30 mg 4 (four) hours tabletIndications: as needed for acute pain Pain (scale 7-10) for up to 7 days. Indications: acute pain ibuprofen 800 mg Take 1 tablet 20 tablet 0 12/27/2019 Active tabletIndications: by mouth every Fall, initial encounter 8 (eight) hours as needed for Pain (scale 4-6). methocarbamol Take 1 tablet 20 tablet 0 12/27/2019 A ctive (ROBAXIN-750) 750 mg by mouth 4 tabletIndications: (four) times Fall, initial encounter daily as needed for Pain (scale 7-10). documented as of this encounter (statuses as of 12/27/2019) Active Problems Not on filedocumented as of this encounter (statuses as of 12/27/2019) Social History Tobacco Use Types Packs/Day Years Used Date Never Assessed Sex Assigned at Date Recorded Not on file COVID-19 Exposure Response Date Recorded In the last month, have you been in contact with No / Unsure 12/26/2019 10:17 PM CDT someone who was confirmed or suspected to have Coronavirus / COVID-19? documented as of this encounter Last Filed Vital Signs Vital Sign Reading Time Taken Comments Blood Pressure 138/87 12/27/2019 1:18 AM CDT Pulse 68 12/27/2019 1:18 AM CDT Temperature 36.1 C (96.9 F) 12/27/2019 1:18 AM CDT Respiratory Rate 18 12/27/2019 1:18 AM CDT Oxygen Saturation 98% 12/27/2019 1:18 AM CDT Inhaled Oxygen Concentration - - Weight 104.3 kg (230 lb) 12/26/2019 10:52 PM CDT Height 167.6 cm (5' 6") 12/27/2019 1:18 AM CDT Body Mass Index 37.12 12/26/2019 10:52 PM CDT documented in this encounter Discharge Instructions InstructionsPrJosé Antonio fernandez, 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 - 12/27/2019DIAGNOSIS 1. Wrist/finger sprain 2. Abdominal pain NO LIFE-THREATENING FINDINGS ON TODAY'S EXAM. RECOMMEND FOLLOW-UP WITH A PRIMARY CARE PROVIDER OR SPECIALIST IN 2-5 DAYS, ESPECIALLY IF NO IMPROVEMENT IN SYMPTOMS. MAY FOLLOW-UP WITH A PROVIDER OF YOUR CHOICE, SUCH : 1. A PHYSICIAN OF YOUR CHOICE 2. [address] [place] [address], [address] [place] [address]; [phone] 3. [facility], [address] [place] [address]; [phone] OR, IF YOU WISH TO FOLLOW-UP WITHIN THE [facility], MAY TRY THESE OPTIONS (CLINIC APPOINTMENTS AVAILABLE ON [id number] BASIS): 1. SCHEDULE AN APPOINTMENT ONLINE AT [facility] 2. OR CALL THE [facility] ACCESS CENTER AT OR 3. OR CALL YOUR [facility] PHYSICIAN'S OFFICE DIRECTLY IF YOU ARE ALREADY AN ESTABLISHED [facility] PATIENT. RETURN TO ER FOR WORSENING OF SYMPTOMS. AttachmentsThe following attachments cannot be sent through Care Everywhere. Contusion, Upper Extremity (Filipino)Finger Sprain (Filipino)Wrist Flexion (Flexibility) (Filipino)Strains and Sprains, Self-Care for (Filipino)Wrist Sprain, Understanding a (Filipino)documented in this encounter ED Notes Oskar Erwin RN - 12/26/2019 10:50 PM CDTPt reports slipping and falling down 4-5 stairs tonight but did not go with EMS cause of children unattended. Her mother is watching children now - she is complaining of right wrist and finger pain (EMS splinted), as well as RUQ pain - states she had lap cholecystectomy in [place] 2 weeks ago. No other injuries. No loss of consciousness. documented in this encounter Miscellaneous Notes ED Nurse Note - Lizbeth Boothe RN - 12/27/2019 1:24 AM CDTPt given printed and verbal discharge instructions regarding fall, sprained wrist, abdominal pain, encouraged hydration, Prescriptions provided Tylenol #3, Robaxin, Ibuprofen Discussed ibuprofen and to take with food to avoid GI distress. Discussed tramadol/phenergan/Tylenol # 3 side affects and to avoid driving/operating machinery/or engaging in activities requiring alertness while taking. Pt verbalized understanding of instructions, pt awake alert oriented, resp reg unlabored, skin w/d, color appropriate for race, moves all ext well,pt encouraged to follow up with pcp and or ortho Advised to seek medical attention for new/prolonged/worsening of symptoms, Symptoms improved No adverse reaction to meds given in ER noted upon discharge Awake, alert oriented, resp reg unlabored, skin w/d, pt leaving amb with steady gait, in no apparent distress, documented in this encounter Plan of Treatment Name Type Priority Associated Diagnoses Date/Ti me XR HAND 3+ VW RIGHT IMAGING STAT Fall, initial encount er 12/26/2019 11:21 PM CDT XR WRIST 3+ VW RIGHT IMAGING STAT Fall, initial encoun ter 12/26/2019 11:21 PM CDT XR FOREARM 2 VW RIGHT IMAGING STAT Fall, initial encou nter 12/26/2019 11:21 PM CDT Health Maintenance Due Date Last Done Comments VARICELLA VACCINES (1 of 2 - 1987 2-dose childhood series) Depression Screening 1998 DTaP,Tdap,and Td Vaccines (1 - 2005 Tdap) PAP SMEAR 2007 INFLUENZA VACCINE (#1) 2020 PNEUMOCOCCAL 0-64 YEARS COMBINED Aged Out No longer eligible based on SERIES patient's age to complete this topic documented as of this encounter Procedures Procedure Name Priority Date/Time Associated Diagnosis Comme nts XR WRIST 3+ VW RIGHT STAT 12/26/2019 11:21 PM CDT Fall, ini tial encounter Procedure Note - [facility], Radia nt Results Inft User - 12/27/2019 12:27 AM CDT EXAM: XR FOREARM 2 VW RIGHT, XR WRIST 3+ VW RIGHT, XR HAND 3+ VW RIGHT HISTORY: 34 years-old Female fall COMPARISON: None. FINDINGS: Radiographs of the right for earm, wrist, and hand demonstrate no acute fracture or dislocation. The joint spaces are preserved. A remote second digit distal tuft fracture i s noted. IMPRESSION No acute osseous abnormality . Preliminary Report Dictated by Resident: Farooq Quintero XR HAND 3+ VW RIGHT STAT 12/26/2019 11:21 PM CDT Fall, init ial encounter Procedure Note - [facility], Radia nt Results Inft User - 12/27/2019 12:27 AM CDT EXAM: XR FOREARM 2 VW RIGHT, XR WRIST 3+ VW RIGHT, XR HAND 3+ VW RIGHT HISTORY: 34 years-old Female fall COMPARISON: None. FINDINGS: Radiographs of the right for earm, wrist, and hand demonstrate no acute fracture or dislocation. The joint spaces are preserved. A remote second digit distal tuft fracture i s noted. IMPRESSION No acute osseous abnormality . Preliminary Report Dictated by Resident: Farooq Quintero XR FOREARM 2 VW RIGHT STAT 12/26/2019 11:21 PM CDT Fall, in itial encounter Procedure Note - [facility], Radia nt Results Inft User - 12/27/2019 12:27 AM CDT EXAM: XR FOREARM 2 VW RIGHT, XR WRIST 3+ VW RIGHT, XR HAND 3+ VW RIGHT HISTORY: 34 years-old Female fall COMPARISON: None. FINDINGS: Radiographs of the right for earm, wrist, and hand demonstrate no acute fracture or dislocation. The joint spaces are preserved. A remote second digit distal tuft fracture i s noted. IMPRESSION No acute osseous abnormality . Preliminary Report Dictated by Resident: Farooq Quintero POCT TEST JENNYFER 12/26/2019 11:02 PM Fall, initial Results for this CDT encounter procedure are i n the results section. CONSENT/REFUSAL FOR Routine 12/26/2019 10:14 PM DIAGNOSIS AND CDT TREATMENT NOTICE OF PRIVACY Routine 12/26/2019 10:14 PM PRACTICES CDT documented in this encounter Results POCT TEST (12/26/2019 11:02 PM CDT) Pathologist Sig nature POCT PREG negative On board controls acceptable present with C Line POCT PREG LOT # [id number] POCT PREG TEST DATE 2021-02-18 Specimen Urine - URINE, CLEAN CATCH documented in this encounter Visit Diagnoses Diagnosis Fall, initial encounter - Primary Contusion of finger without damage to na il, unspecified finger, initial encounter Sprain of finger, unspecified finger, in itial encounter Sprain of right wrist, initial encounter Right upper quadrant abdominal pain Abdominal pain, right upper quadrant documented in this encounter Administered Medications Medication Order MAR Action Action Date Dose Rate Site FENTanyl PF (SUBLIMAZE (PF)) Given 12/26/2019 11:37 PM CDT 50 mc g Left Arm injection 50 mcg 50 mcg, Intramuscular, ONCE, 1 dose, Mon12/27/19 at 0015, Routine HYDROcodone-acetaminophen (NORCO 5) 5-325 Given 2019 11:38 PM CDT 1 tablet mg tablet 1 tablet 1 tablet, Oral, ONCE, 1 dose, Mon12/27/19 at 0015, JENNYFER ibuprofen (IBU) tablet 800 mg Given 12/26/2019 11:38 PM CDT 800 mg 800 mg, Oral, ONCE, 1 dose, Mon12/27/19 at 0015, JENNYFER documented in this encounter documented as of this encounter
--- OUTSIDE RECORDS SUMMARY | 2020-02-27 22:32 | XMS REPORT | Summary of Care ---
:1985 Author Organization [facility] Address [address] [place] [address] Care Team Providers Name Role Phone Teja Burrows Primary Care Provider Reason for Visit Reason Comments Appointment 1 WEEK ED FU APPOINTMENT Encounter Details Date Type Department Care Team Description 12/30/2019 Telephone [facility] [employer] Surgical Unknown, Attending A ppointment ([facility] WEEK [facility] [address] [facility], [address] [place] [address] Allergies No Known Allergiesdocumented as of this encounter (statuses as of 01/02/2020) Medications Medication Sig Dispensed Refills Start Date [...] as of this encounter (statuses as of 01/02/2020) Active Problems Not on filedocumented as of this encounter (statuses as of 01/02/2020) Social History Tobacco Use Types Packs/Day Years Used Date Never Assessed Sex Assigned at Date Recorded Not on file COVID-19 Exposure Response Date Recorded In the last month, have you been in contact with No / Unsure 12/26/2019 10:17 PM CDT someone who was confirmed or suspected to have Coronavirus / COVID-19? documented as of this encounter Last Filed Vital Signs Not on filedocumented in this encounter Miscellaneous Notes Telephone Encounter - Stevenson Del Castillo - 01/02/2020 11:39 AM CDTLvm to contact clinic to schedule appt elephone Encounter - aKyla Olvera LVN - 12/31/2019 3:56 PM CDT Routed to [facility] to schedule patient for appropriate provider. elephone Encounter - Gigi Apodaca - 12/30/2019 11:02 AM CDTPatient was discharged from ED on 12/26/19. Please contact the patient and assist with appointment . 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 Patient says that she has been sore since her lap jay 2 weeks ago at [facility]. Patient denies any bruising to abd, no swelling. Patient denies head injury, no loss of consciousness. Severity of Pain: 05/31 - 8 documented in this encounter Plan of Treatment [...] Results Not on filedocumented in this encounter Insurance Payer Benefit Plan / Subscriber ID Effective Dates Phone Addre ss Type Group [place] [id number] 2012-Present Tr anabel NUNO [employer] II [id number] 2019-Present HM O/PPO/POS documented as of this encounter
[2020-02-27 23:52] VITALS: O2SAT 97
[2020-02-28] MEDS: NA CHLORIDE 0.9% 1,000 ML IV SCH ×2 (01:31→14:55)
[2020-02-28] MEDS: KETOROLAC 30 MG/ML INJ IV SCH ×2 (01:32→05:41)
[2020-02-28] MEDS: MORPHINE 4 MG/ML SYR IV PRN ×2 (01:33→06:30)
[2020-02-28 04:57] LABS: BUN Blood Urea Nitrogen 8 mg/dL (7-18); Bicarbonate 27 mmol/L (21-32); Glucose Level 81 mg/dL (74-106); Potassium 3.7 mmol/L (3.5-5.1); Sodium Level 141 mmol/L (136-145)
[2020-02-28] MEDS: METRONIDAZOLE 500mg IVPB 500 MG/100 ML BAG IV SCH ×3 (05:41→20:13)
[2020-02-28] MEDS ORDERED: POTASSIUM 25 MEQ EFFERV TAB PO ONE (05:59)
[2020-02-28] MEDS ORDERED: SODIUM CHLORIDE 0.9% 10ML INJ IV PRN (09:22)
[2020-02-28] MEDS ORDERED: METOCLOPRAMIDE 10 MG/2mL INJ IV PRN (09:23)
--- NOTE | 2020-02-28 09:23 | P.PN ---
Subjective Date of Service: 02/28/20 Chief Complaint: Acute diverticulitis Subjective: Improving, Other (Patient is making slow recovery. She is yet to tolerate PO diet/liquid. Her sx are exacerbated by meals, making her nauseous.) Physical Examination - Vital Signs Temperature: 97.3 F Blood Pressure: 106/66 Pulse: 55 Respirations: 97 Pulse Ox (%): 97 - Physical Exam General: Mild distress, Obese, Other (lethargic) HEENT: Atraumatic, Normocephalic, EOMI Neck: Supple Respiratory: Clear to auscultation bilaterally, Normal air movement Cardiovascular: No edema, Normal pulses, Regular rate/rhythm, Normal S1 S2 Gastrointestinal: Normal bowel sounds, Non-distended, Other (LLQ tenderness), Tenderness Musculoskeletal: No clubbing, No swelling, No contractures, No erythema, No tenderness, No warmth Integumentary: No rashes, No breakdown, No significant lesion, No tenderness/swelling, No erythema, No warmth, No cyanosis Neurological: Normal speech, Sensation intact, Normal affect Assessment & Plan - Problems (Diagnosis) (1) Acute diverticulitis Current Visit: Yes Status: Acute (2) Obesity (BMI 35.0-39.9 without comorbidity) Current Visit: Yes Status: Acute (3) Headache, chronic migraine without aura Current Visit: Yes Status: Acute Physician Review Additional Text: Assessment 35-year-old female with obesity, chronic migraine headache currently admitted with acute diverticulitis. She is responding to IV fluid infusion antibiotics. Acute diverticulitis Migraine headache Obesity Plan: Continue cipro and flagyl along with IVF infusion Discontinue ketorolac as patient states it's making her nauseous Discontinue morphine Switch zofran to phenergan Start reglan and PPI Patient can resume home dose of migraine headache Discharge tomorrow if she responds to above treatment
[2020-02-28] MEDS: FLUOXETINE 10 MG CAP PO SCH (09:46)
[2020-02-28] MEDS: PANTOPRAZOLE 40 MG INJ IVP SCH (09:46)
[2020-02-28] MEDS: CIPROFLOXACIN 400mg IV 400 MG/200 ML BAG IV SCH ×2 (09:46→20:44)
[2020-02-28] MEDS: ZOLPIDEM TARTRATE 5 MG TABLET PO SCH (20:13)
[2020-02-29] MEDS: NA CHLORIDE 0.9% 1,000 ML IV SCH ×2 (02:46→08:25)
[2020-02-29] MEDS: METRONIDAZOLE 500mg IVPB 500 MG/100 ML BAG IV SCH (03:20)
[2020-02-29 05:10] LABS: BUN Blood Urea Nitrogen 5 mg/dL (7-18); Bicarbonate 27 mmol/L (21-32); Glucose Level 90 mg/dL (74-106); Potassium 3.8 mmol/L (3.5-5.1); Sodium Level 142 mmol/L (136-145)
[2020-02-29 07:41] VITALS: BP 133/81; TEMP 98.6
[2020-02-29] MEDS ORDERED: POTASSIUM CL SA 10 MEQ TAB PO ONE (08:00)
[2020-02-29] MEDS: CIPROFLOXACIN 400mg IV 400 MG/200 ML BAG IV SCH (08:24)
[2020-02-29] MEDS: FLUOXETINE 10 MG CAP PO SCH (08:24)
[2020-02-29] MEDS: PANTOPRAZOLE 40 MG INJ IVP SCH (08:24)
--- NOTE | 2020-02-29 08:44 | P.DS ---
Admission Date: 02/26/20 Discharge Date: 02/29/20 Disposition: ROUTINE DISCHARGE Discharge Condition: GOOD Reason for Admission: Acute diverticulitis - Problems (1) Acute diverticulitis Current Visit: Yes Status: Acute (2) Obesity (BMI 35.0-39.9 without comorbidity) Current Visit: Yes Status: Acute (3) Headache, chronic migraine without aura Current Visit: Yes Status: Acute Brief History of Present Illness: Please refer to H&P Hospital Course: Patient is a 36-year-old female with obesity admitted with acute diverticulitis. She was placed on ciprofloxacin and Flagyl anti emetics. She eventually responded to therapy after 2 days with the addition of Reglan. Patient is a medically cleared ready for discharge Vital Signs/Physical Exam: Temp Pulse Resp BP Pulse Ox 98.6 F 71 16 133/81 98 02/29/20 07:40 02/29/20 07:40 02/29/20 07:40 02/29/20 07:40 02/29/20 07:40 General: Alert, In no apparent distress HEENT: Atraumatic, Normocephalic, EOMI Neck: Supple Respiratory: Clear to auscultation bilaterally, Normal air movement Cardiovascular: No edema, Normal pulses, Regular rate/rhythm, Normal S1 S2 Gastrointestinal: Normal bowel sounds, Soft and benign, Non-distended, No tenderness Musculoskeletal: No clubbing, No swelling, No contractures, No erythema, No tenderness, No warmth Integumentary: No rashes, No breakdown, No significant lesion, No tenderness/swelling, No erythema, No warmth, No cyanosis Neurological: Normal speech, Normal tone, Sensation intact Laboratory Data at Discharge: WBC 8.5 K/uL (4.3-10.9) D 02/27/20 06:07 Hgb 11.1 g/dL (12.0-15.0) L 02/27/20 06:07 Hct 32.7 % (36.0-45.0) L 02/27/20 06:07 Plt Count 309 K/uL (152-406) 02/27/20 06:07 Sodium 142 mmol/L (136-145) 02/29/20 04:16 Potassium 3.8 mmol/L (3.5-5.1) 02/29/20 04:16 BUN 5 mg/dL (7-18) L 02/29/20 04:16 Creatinine 0.61 mg/dL (0.55-1.3) 02/29/20 04:16 Glucose 90 mg/dL (74-106) 02/29/20 04:16 Magnesium 2.0 mg/dL (1.8-2.4) 02/27/20 06:07 Total Bilirubin 0.3 mg/dL (0.2-1.0) 02/26/20 18:34 AST 10 U/L (15-37) L 02/26/20 18:34 ALT 15 U/L (12-78) 02/26/20 18:34 Alkaline Phosphatase 76 U/L (45-117) 02/26/20 18:34 Lipase 172 U/L (73-393) 02/26/20 18:34 Home Medications: Fluoxetine HCl [Prozac*] 10 mg PO DAILY 02/27/20 Zolpidem Tartrate [Ambien*] 5 mg PO BEDTIME 02/27/20 levoFLOXacin [Levaquin*] 750 mg PO DAILY #4 tab 02/29/20 metroNIDAZOLE [Flagyl] 500 mg PO Q8H #12 tablet 02/29/20 New Medications: metroNIDAZOLE [Flagyl] 500 mg PO Q8H #12 tablet levoFLOXacin [Levaquin*] 750 mg PO DAILY #4 tab Diet: Regular
== END 2020-02-29 10:16 | disposition home or self-care (01) | DRG 392 ==
LOC: ER 17:56 → ERHOLD 20:24 → 4TH 21:18
PROVIDERS: ADMIT Internal Medicine; ATTEND Internal Medicine
DX: K57.32 Diverticulitis of large intestine without perforation or abscess without bleeding (principal); F41.9 Anxiety disorder, unspecified; G43.709 Chronic migraine without aura, not intractable, without status migrainosus; E66.9 Obesity, unspecified; Z68.38 Body mass index [BMI] 38.0-38.9, adult; Z90.49 Acquired absence of other specified parts of digestive tract; Z79.899 Other long term (current) drug therapy; Z98.51 Tubal ligation status; Z20.828 Contact with and (suspected) exposure to other viral communicable diseases
CPT/HCPCS: 36415; 74176; 74177; 80048; 80076; 81003; 81025; 83605; 83690; 83735; 85025; 90471; 96374; 96375; 99284; C9113; J0744; J2405; J2765; J3480; J7030; Q2035; Q9967; U0002

== ENCOUNTER 2022-09-19 08:22 | Observation (INO) | payer OTHER ==
[2022-09-19] MEDS ORDERED: ONDANSETRON 4 MG/2 ML VIAL ONE ×2 (08:40→10:22)
[2022-09-19] MEDS ORDERED: NA CHLORIDE 0.9% 1,000 ML ONE (08:40)
[2022-09-19] MEDS ORDERED: KETOROLAC 30 MG/ML INJ ONE ×2 (08:40→10:22)
--- OUTSIDE RECORDS SUMMARY | 2022-09-19 08:45 | XMS REPORT | Continuity of Care Document ---
:1985 Author Organization [facility] t Address [address] [place] [address] Care Team Providers Name Role Phone Yolanda Hart Attending Clinician YOLANDA MANCINI Attending Clinician Unavailable Unknown, Attending Attending Clinician Unavailable José Antonio Jacobs Attending Clinician JOSÉ ANTONIO VILLEGAS Attending Clinician Unavailable Payers Payer Name Policy Type Policy Number Effective Date Expiration Date S ource Problems This patient has no known problems. Allergies, Adverse Reactions, Alerts Allergy Allergy Status Severity Reaction(s) Onset Inactive Treating Comm ents Source Name Type Date Date Clinician NO KNOWN Drug Active Univers ALLERGIE Class it of [facility] Social History Social Habit Start Date Stop Date Quantity Comments Source Sex Assigned At [facility] Exposure to Not sure [facility] SARS-CoV-2 (event) Medica l Branch Tobacco use and 2020-01-03 2020-01-03 Never used [facility] exposure 00:00:00 00:00:00 [facility] Smoking Status Start Date Stop Date Source Unknown if ever smoked [facility] Never smoker [facility] Medications Ordered Filled Start Stop Current Ordering Indication Dosage Frequency Signature Comments Components Source Medication Medication Date Date Medication? Clinician (SIG) Name Name ibuprofen 2019- Yes [id number] 800mg Take 1 Univers 800 mg 8-14 [id number] tablet by ity of tablet 00:00: mouth [place] 00 every 8 Medical (eight) Branch hours as needed for Pain (scale 4-6). ibuprofen Yes [id number] 800mg Take 1 Univers 800 mg 8-14 [id number] tablet by ity of tablet 00:00: mouth [place] 00 every 8 Medical (eight) Branch hours as needed for Pain (scale 4-6). ibuprofen 2020-0 Yes [id number] 800mg Take 1 Univers 800 mg 8-14 [id number] tablet by ity of tablet 00:00: mouth [place] 00 every 8 Medical (eight) Branch hours as needed for Pain (scale 4-6). ibuprofen 2020-0 2020- No 800mg 800 mg, Uni vers (IBU) 12-26- Oral, ity of tablet 800 05:15: 04:38 ONCE, 1 [place]ah[place] as mg 00 :00 dose, Fri Medical 12/27/19 at Branch 0015, JENNYFER HYDROcodone 2019-0 2020- No 1{tbl} 1 tablet, Univers -acetaminop 12-26 Oral, ity of hen (NORCO 05:15: 04:38 ONCE, 1 Vahid as 5) 5-325 mg 00 :00 dose, Fri Med ical tablet 1 12/27/19 at Branch tablet 0015, JENNYFER FENTanyl PF 2019-0 2019- No 50ug 50 mcg, Un og (SUBLIMAZE 12-26 Intramuscu it y of (PF)) 05:15: 04:37 lar, ONCE, [place] injection 00 :00 1 dose, Medical 50 mcg 12/27/19 Branch at 0015, Routine ibuprofen 2020-0 Yes [id number] 800mg Take 1 Un og 800 mg 8-07 tablet by ity of tablet 00:00: mouth [place] 00 every 8 Medical (eight) Branch hours as needed for Pain (scale 4-6). methocarbam 2020-0 Yes [id number] 750mg Take 1 Univers ol 8-07 tablet by ity of (ROBAXIN-75 00:00: mouth 4 Vahid as 0) 750 mg 00 (four) Medical tablet times Branch daily as needed for Pain (scale 7-10). ibuprofen 2020-0 Yes [id number] 800mg Take 1 Un og 800 mg 8-07 tablet by ity of tablet 00:00: mouth [place] 00 every 8 Medical (eight) Branch hours as needed for Pain (scale 4-6). methocarbam 2020-0 Yes [id number] 750mg Take 1 Univers ol 8-07 tablet by ity of (ROBAXIN-75 00:00: mouth 4 Vahid as 0) 750 mg 00 (four) Medical tablet times Branch daily as needed for Pain (scale 7-10). methocarbam 2020-0 Yes [id number] 750mg Take 1 Univers ol 8-07 tablet by ity of (ROBAXIN-75 00:00: mouth 4 Vahid as 0) 750 mg 00 (four) Medical tablet times Branch daily as needed for Pain (scale 7-10). methocarbam 2020-0 Yes [id number] 750mg Take 1 Univers ol 8-07 tablet by ity of (ROBAXIN-75 00:00: mouth 4 Vahid as 0) 750 mg 00 (four) Medical tablet times Branch daily as needed for Pain (scale 7-10). methocarbam 2020-0 Yes [id number] 750mg Take 1 Univers ol 8-07 tablet by ity of (ROBAXIN-75 00:00: mouth 4 Vahid as 0) 750 mg 00 (four) Medical tablet times Branch daily as needed for Pain (scale 7-10). acetaminoph 2020- 2020- No 4647 1{tbl} Take 1 U nivers en-codeine 8-07 08-15 tablet by ity of (TYLENOL-CO 00:00: 04:59 [place] DEINE #3) 00 :00 every 4 Medical 300-30 mg (four) Branch tablet hours as needed for Pain (scale 7-10) for up to 7 days. Indication s: acute pain acetaminoph 2020-0 2019- No 4647 1{tbl} Take 1 U nivers en-codeine 8-07 08-15 tablet by ity of (TYLENOL-CO 00:00: 04:59 [place] DEINE #3) 00 :00 every 4 Medical 300-30 mg (four) Branch tablet hours as needed for Pain (scale 7-10) for up to 7 days. Indication s: acute pain acetaminoph 2020-0 2020- No 4647 1{tbl} Take 1 U nivers en-codeine 8-07 08-15 tablet by ity of (TYLENOL-CO 00:00: 04:59 [place] DE[place] #3) 00 :00 every 4 Medical 300-30 mg (four) Branch tablet hours as needed for Pain (scale 7-10) for up to 7 days. Indication s: acute pain acetaminoph 2020-0 2019- No 4647 1{tbl} Take 1 U nivers en-codeine 12-26 tablet by ity of (TYLENOL-CO 00:00: 04:59 mouth [place] DEINE #3) 00 :00 every 4 Medical 300-30 mg (four) Branch tablet hours as needed for Pain (scale 7-10) for up to 7 days. Indication s: acute pain ibuprofen 2019- No [id number] 800mg Take 1 U nivers 800 mg 12-26 tablet by ity of tablet 00:00: 00:00 mouth [place] 00 :00 every 8 Medical (eight) Branch hours as needed for Pain (scale 4-6). ibuprofen 2019- No [id number] 800mg Take 1 U nivers 800 mg 12-26 tablet by ity of tablet 00:00: 00:00 mouth [place] 00 :00 every 8 Medical (eight) Branch hours as needed for Pain (scale 4-6). Vital Signs Vital Name Observation Time Observation Value Comments Source Body temperature 2020-01-03 15:35:00 36.56 Gauri [facility] Body height 2020-01-03 15:35:00 167.6 cm [facility] Body weight 2020-01-03 15:35:00 105.643 kg [facility] BMI 2020-01-03 15:35:00 37.59 kg/m2 [facility] Body temperature 2020-01-03 15:35:00 36.56 Gauri [facility] Body height 2020-01-03 15:35:00 167.6 cm [facility] Body weight 2020-01-03 15:35:00 105.643 kg [facility] BMI 2020-01-03 15:35:00 37.59 kg/m2 [facility] Systolic blood 2019-12-27 06:18:48 138 mm[Hg] [facility] Diastolic blood 2019-12-27 06:18:48 87 mm[Hg] [facility] Heart rate 2019-12-27 06:18:48 68 /min [facility] Body temperature 2019-12-27 06:18:48 36.06 Gauri [facility] Respiratory rate 2019-12-27 06:18:48 18 /min [facility] Body height 2019-12-27 06:18:48 167.6 cm [facility] Oxygen saturation in 2019-12-27 06:18:48 98 /min [facility] Arterial blood by [facility] Pulse oximetry Branch Body weight 2019-12-27 03:52:00 104.327 kg [facility] BMI 2019-12-27 03:52:00 37.12 kg/m2 [facility] Procedures Procedure Date / Time Performed Performing Clinician Sour e XR FOREARM 2 VW RIGHT 2019-12-27 04:21:10 José Antonio Villegas [facility]+ VW RIGHT 2019-12-27 04:21:10 José Antonio Villegas [facility] XR WRIST 3+ VW RIGHT 2019-12-27 04:21:10 José Antonio Villegas [facility] POCT TEST 2019-12-27 04:02:00 José Antonio Villegas [facility] CONSENT/REFUSAL FOR 2019-12-27 03:14:29 [facility] TREATMENT NOTICE OF PRIVACY 2019-12-27 03:14:18 Doctor Unassigned, No Univ [facility] PRACTICES Name [facility] Encounters Start End Encounter Admission Attending Care Care Encounter Source Date/Time Date/Time Type Type Clinicians Facility Department ID 2020-03-24 2020-03-24 Refill Prieto [facility] [id number] Univers 00:00:00 00:00:00 Yolanda SPECIALTY [id number] ity of CARE [id number] [facility] AT [phone] Wi ely [place] [facility] [place] 2020-01-31 2020-01-31 Outpatient R KMIBERLY MANCINI [facility] [id number] Univers 10:45:00 10:45:00 [facility] 2020-01-03 2020-01-03 Office KIMBERLY Mancini [id number] 10:27:18 10:58:58 Visit Yolanda SPECIALTY [id number] CARE [id number] CENTER AT [id number] ISAEL Elizabeth [facility] 2020-01-03 2020-01-03 [facility] [id number] Univers 10:27:18 10:58:58 Visit Yolanda SPECIALTY [id number] ity of CARE [id number] [facility] [place] [facility] CENTER AT [phone] Wi dical [address] 2020-01-03 2020-01-03 [facility] [id number] Univers 10:30:00 10:30:00 [facility] 2019-12-30 2019-12-30 Telephone Unknown, [facility] [id number] Univers 00:00:00 00:00:00 Attending Tessy [id number] ity of [place] [id number] [facility] s [facility] [phone] Wi dical magi [address] [facility] 2019-12-26 2019-12-27 Emergency [facility] [id number] Univers 22:57:00 01:27:00 José Antonio B Tessy [id number] i ty of [place] [id number] [facility] s [place] [phone] [address] 2019-12-26 2019-12-26 Emergency X [facility] ERT [id number] Univers 22:57:00 22:57:00 [facility] Results Test Description Test Time Test Comments Results Result Comments Source POCT TEST 2019-12-27 04:02:00 Test Item Value Reference Range Interpretation Comme nts POCT PREG (test code = 1605) negative On board controls acceptable with C Line (test code = 3574) present POCT PREG LOT # (test code = 3575) [id number] POCT PREG TEST DATE (test code = 3576) 2021-02-18 Lab Interpretation (test code = 59732-3) Normal [facility]
[2022-09-19 08:54] LABS: Specific Gravity 1.013 (1.005-1.030); Urine Bilirubin NEGATIVE (Negative); Urine Blood Negative (Negative); Urine Clarity Clear (Clear); Urine Color Light-Yellow (Yellow); Urine Glucose NEGATIVE (Negative); Urine Protein NEGATIVE (Negative); Urine Urobilinogen Normal (Normal)
[2022-09-19 08:54] LABS: Absolute Lymphocytes (CBC) 1.3 K/uL (0.7-4.9); Hematocrit 38.3 % (36.0-45.0); Lymphocytes % 11.9 % (15.3-44.8); MPV 7.9 fL (7.6-11.3)
[2022-09-19 09:11] LABS: Albumin 4.2 g/dL (3.4-5.0); Bilirubin Total 0.7 mg/dL (0.2-1.0); Potassium 3.5 mEq/L (3.5-5.1)
--- NOTE | 2022-09-19 09:31 | RAD REPORT ---
EXAM DESCRIPTION: CTAbdomen Pelvis W Contrast - 09/19/2022 9:20 am CLINICAL HISTORY: ABD PAIN COMPARISON: Abdomen Pelvis W Contrast dated 02/26/2020; Abdomen Pelvis W Contrast dated 11/29/2019 ; CT ABD PELVIS W CONTRAST dated 03/26/2015; CT ABD PELVIS W CONTRAST dated 03/19/2014 TECHNIQUE: CT of the abdomen and pelvis was performed. All CT scans are performed using dose optimization technique as appropriate and may include automated exposure control or mA/KV adjustment according to patient size. FINDINGS: Lower chest: No acute abnormality. Liver: No acute abnormality or suspicious lesions. Biliary: Cholecystectomy Stomach: No significant focal abnormality. Duodenum: No significant focal abnormality. Pancreas: No significant abnormality. Spleen: No significant abnormality. Adrenal: No suspicious lesions. Kidney/ureter: No hydronephrosis. No renal calculi. Retroperitoneum: No retroperitoneal adenopathy. Vascular: No aneurysm. Bowel: A dilated fluid-filled appendix with appendicolith near the base.. No bowel obstruction. Peritoneum: Small volume of pelvic free fluid which is possibly physiologic. Bladder: Grossly unremarkable. Reproductive: No adnexal masses. Bones: No acute fracture. Other: n/a IMPRESSION: Dilated fluid-filled appendix with appendicolith though without significant inflammatory changes nonetheless remains suspicious for early or mild acute nonperforated appendicitis.
--- NOTE | 2022-09-19 09:46 | EDPHYS ---
Physician Documentation [facility] Name: Qing Londono Age: 37 yrs Sex: Female : 1985 Arrival Date: 09/19/2022 Time: 08:22 Bed 19 Private MD: Teja Burrows E ED Physician Iker Cole HPI: 09/19 08:32 This 37 yrs old Female presents to ER via Unassigned with complaints of kb Abdominal Pain, Fever. 08:32 The patient presents with abdominal pain right lower quadrant. Onset: The kb symptoms/episode began/occurred 3 day(s) ago. The symptoms do not radiate. Associated signs and symptoms: Pertinent positives: nausea, vomiting, and diarrhea, fever. The symptoms are described as constant. Modifying factors: The symptoms are alleviated by nothing, the symptoms are aggravated by movement, pressure. Severity of pain: At its worst the pain was moderate in the emergency department the pain is unchanged. The patient has not experienced similar symptoms in the past. The patient has not recently seen a physician. Historical: - Allergies: 08:35 No Known Drug Allergies; kc6 - PMHx: 08:35 Anxiety; kc6 - PSHx: 08:35 Cholecystectomy; tubal ligation; kc6 - Immunization history:: Adult Immunizations up to date. - Social history:: Smoking status: Patient denies any tobacco usage or history of. ROS: 08:31 Respiratory: Negative for shortness of breath, cough, wheezing, and pleuritic chest kb pain. 08:31 Constitutional: Positive for fatigue, fever. 08:31 Abdomen/GI: Positive for abdominal pain, nausea, vomiting, and diarrhea, Negative for constipation. 08:31 : Positive for burning with urination. 08:31 All other systems are negative. Exam: 08:31 Constitutional: This is a well developed, well nourished patient who is awake, alert, kb and in no acute distress. Head/Face: Normocephalic, atraumatic. ENT: Moist Mucous membranes Cardiovascular: Regular rate and rhythm with a normal S1 and S2. No gallops, murmurs, or rubs. No pulse deficits. Respiratory: Respirations even and unlabored. No increased work of breathing. Talking in full sentences Skin: Warm, dry with normal turgor. Normal color. MS/ Extremity: Pulses equal, no cyanosis. Neurovascular intact. Full, normal range of motion. Neuro: Awake and alert, GCS 15, oriented to person, place, time, and situation. Moves all extremities. Normal gait. 08:31 Abdomen/GI: Inspection: abdomen appears normal, Bowel sounds: normal, Palpation: soft, in all quadrants, moderate abdominal tenderness, in the right upper quadrant and right lower quadrant. Vital Signs: 08:36 BP 113 / 79; Pulse 78; Resp 16; Temp 97.9; Pulse Ox 100% ; Weight 82.1 kg; Height 5 ft. ll1 5 in. ; Pain 8/10; 08:36 Body Mass Index 30.12 (82.10 kg, 165.1 cm) ll1 08:36 Pain Scale: Adult ll1 MDM: 08:25 Patient medically screened. kb 08:32 Differential diagnosis: appendicitis, diverticulitis, gastritis, non-specific abd pain, kb Pyelonephritis, urinary tract infection. Data reviewed: vital signs, nurses notes. 09:44 Consideration of Admission/Observation Patient was admitted/placed on observation. kb Management of patient was discussed with the following: In School Suspension Aide: Dr Espinoza accepts pt for admission. Counseling: I had a detailed discussion with the patient and/or guardian regarding: the historical points, exam findings, and any diagnostic results supporting the discharge/admit diagnosis, lab results, radiology results, the need for further work-up and treatment in the hospital. 05 08:31 Order name: CBC with Diff; Complete Time: 08:55 kb 09/19 08:31 Order name: CMP; Complete Time: 09:23 kb 09/19 08:31 Order name: Lipase; Complete Time: 09:23 kb 09/19 08:31 Order name: Urinalysis w/ reflexes; Complete Time: 08:55 kb 09/19 10:07 Order name: Test, Urine kb 09/19 10:14 Order name: Test, Urine; Complete Time: 10:17 EDMS 09/19 08:31 Order name: CT Abd/Pelvis - IV Contrast Only; Complete Time: 09:42 kb 09/19 08:31 Order name: IV Saline Lock; Complete Time: 08:41 kb 09/19 08:31 Order name: Labs collected and sent; Complete Time: 08:41 kb Administered Medications: 08:47 Drug: NS 0.9% IV 1000 ml Route: IV; Rate: 1 bolus; Site: left antecubital; kc6 08:47 Drug: TORadol - Ketorolac IVP 15 mg Route: IVP; Site: left antecubital; kc6 08:47 Drug: Ondansetron IVP 4 mg Route: IVP; Site: left antecubital; kc6 10:04 Drug: Piperacillin-Tazobactam IVPB 3.375 grams Route: IVPB; Infused Over: 60 mins; kc6 Site: left antecubital; Disposition: 11:02 Co-signature as Attending Physician, Iker Cole MD I reviewed the patient's care rn provided by the Advanced Practice Provider and agree with the diagnosis and treatment plan. Disposition Summary: 09/19/22 09:46 Hospitalization Ordered Hospitalization Status: Observation kb Provider: Gal Espinoza Location: Operating Room kb Condition: Stable kb Problem: new kb Symptoms: are unchanged kb Bed/Room Type: Standard Room Assignment: kb Diagnosis - Unspecified acute appendicitis kb Forms: - Medication Reconciliation Form kb - SBAR form kb Signatures: Dispatcher [employer] Deepa Espino, [employer]-Iker Santizo MD MD rn Campbell, Kaitlyn, RN RN kc6
--- NOTE | 2022-09-19 09:46 | ER ---
Nurse's Notes [facility] Name: Qing Londono Age: 37 yrs Sex: Female : 1985 Arrival Date: 09/19/2022 Time: 08:22 Bed 19 Private MD: Teja Burrows E Diagnosis: Unspecified acute appendicitis Presentation: 09/19 08:36 Chief complaint: Patient states: Diarrhea, fatigue, abd pain, low grade fever, dysuria ll1 for 3 days. Coronavirus screen: Client denies travel out of the [place] in the last 14 days. At this time, the client does not indicate any symptoms associated with coronavirus-19. Ebola Screen: Patient denies travel to an Ebola-affected area in the 21 days before illness onset. Initial Sepsis Screen: Does the patient meet any 2 criteria? No. Patient's initial sepsis screen is negative. Does the patient have a suspected source of infection? Yes: Acute abdominal pain. Risk Assessment: Do you want to hurt yourself or someone else? Patient reports no desire to harm self or others. Onset of symptoms was September 17, 2022. 08:36 Method Of Arrival: Ambulatory ll1 08:36 Acuity: JODIE 3 ll1 Historical: - Allergies: 08:35 No Known Drug Allergies; kc6 - PMHx: 08:35 Anxiety; kc6 - PSHx: 08:35 Cholecystectomy; tubal ligation; kc6 - Immunization history:: Adult Immunizations up to date. - Social history:: Smoking status: Patient denies any tobacco usage or history of. Screenin:49 [facility] ED Fall Risk Assessment (Adult) History of falling in the last 3 months, kc6 including since admission No falls in past 3 months (0 pts) Confusion or Disorientation No (0 pts) Intoxicated or Sedated No (0 pts) Impaired Gait No (0 pts) Mobility Assist Device Used No (0 pt) Altered Elimination No (0 pt) Score/Fall Risk Level 0 - 2 = Low Risk Oriented to surroundings, Maintained a safe environment, Educated pt \T\ family on fall prevention, incl call for assistance when getting out of bed, Assessed \T\ reinforced patient's understanding of fall precautions, Hourly rounding (assess needs \T\ fall precautionary measures) done. Abuse screen: Denies threats or abuse. Denies injuries from another. Nutritional screening: No deficits noted. Tuberculosis screening: No symptoms or risk factors identified. Assessment: 08:48 General: Appears in no apparent distress. uncomfortable, Behavior is calm, cooperative, kc6 appropriate for age. Pain: Complains of pain in right lower quadrant and right upper quadrant Pain does not radiate. Pain currently is 8 out of 10 on a pain scale. Pain began 1 day ago. Is continuous. Neuro: Espinoza Agitation-Sedation Scale (RASS): 0 - Alert and Calm Level of Consciousness is awake, alert, obeys commands, Oriented to person, place, time, situation, Appropriate for age. Cardiovascular: Capillary refill < 3 seconds. Respiratory: Airway is patent Trachea midline Respiratory effort is even, unlabored, Respiratory pattern is regular, symmetrical. GI: Abdomen is flat, non-distended, Bowel sounds present X 4 quads. Abd is soft X 4 quads Abdomen is tender to palpation in right lower quadrant and right upper quadrant Reports nausea, vomiting, Patient currently denies diarrhea. : No signs and/or symptoms were reported regarding the genitourinary system. EENT: No signs and/or symptoms were reported regarding the EENT system. Derm: No signs and/or symptoms reported regarding the dermatologic system. Skin is intact, Skin is pink, warm \T\ dry. Musculoskeletal: No signs and/or symptoms reported regarding the musculoskeletal system. Circulation, motion, and sensation intact. Capillary refill < 3 seconds, Range of motion: intact in all extremities. Vital Signs: 08:36 BP 113 / 79; Pulse 78; Resp 16; Temp 97.9; Pulse Ox 100% ; Weight 82.1 kg; Height 5 ft. ll1 5 in. ; Pain 8/10; 08:36 Body Mass Index 30.12 (82.10 kg, 165.1 cm) ll1 08:36 Pain Scale: Adult ll1 ED Course: 08:25 Patient arrived in ED. rg4 08:25 Teja Burrows MD is Private Physician. rg4 08:25 [facility]C [facility] kb 08:25 Iker Cole MD is Attending Physician. kb 08:31 Bella Boothe RN is Primary Nurse. kc6 08:35 Arm band placed on Patient placed in an exam room, on a stretcher. kc6 08:37 Triage completed. ll1 08:41 CBC with Diff Sent. bc6 08:41 CMP Sent. bc6 08:41 Lipase Sent. bc6 08:41 Inserted saline lock: 20 gauge in left antecubital area, using aseptic technique. bc6 08:47 Urinalysis w/ reflexes Sent. kc6 08:49 Patient has correct armband on for positive identification. Bed in low position. Call kc6 light in reach. Side rails up X 1. 09:21 CT Abd/Pelvis - IV Contrast Only In Process Unspecified. EDMS 09:46 Gal Espinoza MD is Hospitalizing Provider. kb 10:35 No provider procedures requiring assistance completed. Patient admitted, IV remains in kc6 place. Administered Medications: 08:47 Drug: NS 0.9% IV 1000 ml Route: IV; Rate: 1 bolus; Site: left antecubital; kc6 08:47 Drug: TORadol - Ketorolac IVP 15 mg Route: IVP; Site: left antecubital; kc6 08:47 Drug: Ondansetron IVP 4 mg Route: IVP; Site: left antecubital; kc6 10:04 Drug: Piperacillin-Tazobactam IVPB 3.375 grams Route: IVPB; Infused Over: 60 mins; kc6 Site: left antecubital; Medication: 10:36 VIS not applicable for this client. kc6 Outcome: 09:46 Decision to Hospitalize by Provider. kb 10:35 Admitted to OR accompanied by nurse, via wheelchair, with chart. kc6 10:35 Condition: improved 10:35 Instructed on the need for admit. 10:36 Patient left the ED. kc6 Signatures: Dispatcher [employer] EDLA Deepa Raymond, MACHINE ASSEMBLER SUPERVISOR-C MACHINE ASSEMBLER SUPERVISOR-Clari Jonas rg4 Carlos Mancini, RN RN ll1 Bella Boothe RN RN kc6 Kriss Gomez [facility]
[2022-09-19] MEDS ORDERED: PIPERACIL/TAZO 3.375 GM VIAL IV ONE (10:01)
[2022-09-19] MEDS ORDERED: NA CHLORIDE 0.9% 100 ML ONE (10:01)
[2022-09-19] MEDS ORDERED: BUPIVACAINE 0.25% PF 30 ML VIAL ONE (10:12)
[2022-09-19 10:14] LABS: Specific Gravity 1.013 (1.005-1.030)
[2022-09-19] MEDS ORDERED: MIDAZOLAM HCL 2 MG/2 ML INJ ONE (10:22)
[2022-09-19] MEDS ORDERED: ROCURONIUM 50 MG/5 ML VIAL IV ONE (10:22)
[2022-09-19] MEDS ORDERED: FENTANYL CITR 100 MCG/2 ML ONE ×2 (10:22→11:47)
[2022-09-19] MEDS ORDERED: LIDOCAINE 2% MPF 5 ML VIAL ONE (10:22)
[2022-09-19] MEDS ORDERED: propofoL 200 MG/20 ML VIAL IV ONE (10:22)
[2022-09-19] MEDS ORDERED: Ringers Lactate 1,000 ML IV ONE (10:32)
[2022-09-19] MEDS ORDERED: GLYCOPYRROLATE 0.2 MG/ML SYR ONE (12:10)
[2022-09-19] MEDS ORDERED: NEOSTIGMINE 1 MG/ML -10 ML VIAL ONE (12:11)
--- NOTE | 2022-09-19 12:22 | P.OP ---
Preoperative diagnosis: Acute non-perforated appendicitis Postoperative diagnosis: Acute non-perforated appendicitis Primary procedure: Laparoscopic Appendectomy Anesthesia: GETA + Local Estimated blood loss: <5cc Specimen: vermiform appendix Findings: Mild inflammatory changes, laxaty of abdominal wall Complications: None Transferred to: Recovery Room Condition: Good
[2022-09-19] MEDS ORDERED: ONDANSETRON 4 MG/2 ML VIAL IV PRN (12:23)
[2022-09-19] MEDS: NA CHLORIDE 0.9% 1,000 ML IV SCH ×2 (12:23→20:23)
[2022-09-19] MEDS ORDERED: MORPHINE 4 MG/ML SYR IV PRN (12:23)
[2022-09-19] MEDS: HYDROMORPHONE HCL 2 MG/ML inj ONE ×3 (12:34→12:51)
[2022-09-19] MEDS ORDERED: MEPERIDINE HCL 25 MG/ML SYR ONE (12:36)
[2022-09-19] MEDS: D5.45NS W/KCL 20MEQ 1,000 ML IV SCH ×2 (13:40→23:00)
[2022-09-19] MEDS: PIPER TAZO 3.375 GM in NA CHLORIDE 0.9% 100 ML IV SCH ×2 (14:13→19:45)
[2022-09-19] MEDS: HYDROCODONE/APAP 7.5/325 MG TAB PO PRN ×2 (14:15→21:18)
[2022-09-19 15:05] VITALS: BMI 30.1
[2022-09-19] MEDS: MORPHINE 2 MG/ML SYR IV PRN (19:41)
--- NOTE | 2022-09-19 21:22 | HP ---
Date of Admission: 09/19/2022 Brief History Of Present Illness: The patient is a 37-year-old female who presents with complaints o f abdominal pain beginning in the periumbilical and now right lower quadrant, beginning approximately 4 days ago, associated with nausea, no vomiting or diarrhea, and worsening pain. She thought that i t was something that she ate; however, the pain continued to get progressively worse over several day s and it became excruciating and localized to the right lower quadrant. She has never had similar ep isodes before in the past. No sick contacts. No recent travel. No new food exposures. Past Medical History: Significant for anxiety. Past Surgical History: Includes cholecystectomy and tubal ligation. Allergies: NO KNOWN DRUG ALLERGIES. Medications: None. Review of Systems: A 10-point review of systems other than HPI, denied. Physical Examination: General: At the time of my examination, blood pressure 113/79, pulse 78, respiratory rate 16, temper ature 97.7, and pulse ox 100%. Her weight is 82 kg. She is 5 feet 5 inches. General: She is awake, alert, and oriented. Psychiatric: She is appropriate, conversive. HEENT: She is normocephalic. Sclerae anicteric. Mucous membranes are moist. Oropharynx clear. Neck: Supple without JVD. Chest: Normal expansion and excursion. Cardiovascular: Regular rate and rhythm. Pulmonary: Clear to auscultation bilaterally. Abdomen: Soft. Positive right lower quadrant tenderness to palpation. Positive peritonitis in the right lower quadrant. Positive mild guarding. Positive mild rebound. Well-healed surgical scars we re evident. Extremities: No clubbing, cyanosis, or edema. Skin: Warm and dry. Laboratory Data: Revealed a white blood count of 10.9, hemoglobin 10.8, hematocrit of 38.3, platelet count is 373, and neutrophils 77%. Sodium 134, potassium 3.5, chloride 104, carbon dioxide 28, BUN 8, creatinine 0.8, glucose is 102, calcium 9.2, total bilirubin is 0.7, AST 12, ALT 15, alkaline phos phatase 77. Lipase 37. UA is essentially negative. Urine test negative. She had a CT sc an performed of the abdomen and pelvis that showed dilated fluid-filled appendix with appendicolith w ithout significant inflammatory changes. Nonetheless remained suspicious for early or mild acute non perforated appendicitis. Assessment And Plan: This is a 37-year-old female who presents with signs and symptoms of early nonp erforated appendicitis. 1.IV fluid hydration. 2.Antibiotic coverage with Zosyn 3.375 IV q.6. 3.I have explained the risks, benefits, and alternatives of laparoscopic possible open appendectomy including, but not limited to bleeding, infection, damage to surrounding tissue, and need for further operative procedure. The patient agreed to proceed as indicated. JARRELL/RADHA Voice ID: [id number]
--- NOTE | 2022-09-19 22:34 | OP ---
Date of Procedure: 09/19/2022 Surgeon: Gal Espinoza MD, Preoperative Diagnosis: Acute nonperforated appendicitis. Postoperative Diagnosis: Acute nonperforated appendicitis. Procedure Performed: Laparoscopic appendectomy. Anesthesia: General endotracheal plus local with 0.25% Marcaine. Estimated Blood Loss: Less than 5 cc. Specimen: Vermiform appendix. Findings: 1.Mild inflammatory changes. 2.Laxity of the abdominal wall with pneumoperitoneum visualized in the extraperitoneal space. Complications: None. The patient was transferred to recovery room in good condition. Procedure In Detail: After informed consent was obtained, the patient was brought to the operating r oom and prepped and draped in the usual sterile fashion. After adequate anesthesia was achieved, an area of the left lower quadrant was anesthetized with 0.25% Marcaine, sharply incised, and a 5 mm tro car was placed under direct visualization. Her abdominal wall had significant laxity, which preclude d an easy entry. Several attempts were made. Ultimately I entered the abdomen with a 5 mm trocar. Insufflation was obtained to 15 mmHg at this time. There was no injury to vital structures upon entr y into the abdomen. There was some pneumoperitoneum in the abdominal wall. I placed 2 additional tr ocars, one in the infraumbilical position and this was a 12 mm trocar placed under direct visualizati on without evidence of any complication. Additionally in right lower quadrant, a 5 mm trocar was jessica dilan under direct visualization without evidence of any complication. The patient was positioned head down, right side up position. Ratcheted grasper was used to grasp the patient's appendix. I create d a mesoappendiceal window. At this point, I used the Endo-CYNDIE 45 gold load/white load to fire across the base of the appendix with good approximation of tissues. Two fires were required at the confluen ce of the cecum appendiceal junction. I then used an Endo-CYNDIE 45 white load across the mesoappendix wi th good hemostasis at this point. The appendix was then placed in Endo Catch bag, removed through th e umbilical trocar site, and sent off for pathological examination. I then irrigated the abdomen mass spectroscopist iously and in the pelvis as well and suctioned out all effluent as much as possible. The patient was positioned back in neutral position and remaining effluent fluid was suctioned out. I then closed t he 12 mm trocar site using a Levi-Adama suture passer with 0 Vicryl in interrupted fashion with good approximation of tissues. The abdomen was completely desufflated under direct visualization wit hout evidence of any complication and remaining trocars were removed. All skin incisions were then c opiously irrigated and closed with 4-0 Monocryl in running fashion. Dermabond was placed over top. The patient tolerated the procedure without evidence of any complication and transferred to PACU in g ood condition. All counts were correct at the end of the case. JARRELL/RADHA Voice ID: [id number] Report ID: [id number]
[2022-09-20] MEDS: MORPHINE 2 MG/ML SYR IV PRN ×2 (00:41→08:39)
[2022-09-20] MEDS: HYDROCODONE/APAP 7.5/325 MG TAB PO PRN ×3 (02:15→11:12)
[2022-09-20 04:02] LABS: Absolute Lymphocytes (CBC) 1.7 K/uL (0.7-4.9); Hematocrit 28.2 % (36.0-45.0); Lymphocytes % 30.6 % (15.3-44.8); MCV 86.8 fL (80-100); MPV 8.2 fL (7.6-11.3); RBC Red Blood Cell Count 3.25 M/uL (3.86-4.86)
[2022-09-20 04:13] LABS: Phosphorus 3.3 mg/dL (2.5-4.9); Potassium 3.8 mEq/L (3.5-5.1)
[2022-09-20] MEDS: NA CHLORIDE 0.9% 1,000 ML IV SCH (04:23)
[2022-09-20] MEDS: PIPER TAZO 3.375 GM in NA CHLORIDE 0.9% 100 ML IV SCH (05:36)
[2022-09-20] MEDS: D5.45NS W/KCL 20MEQ 1,000 ML IV SCH (08:00)
[2022-09-20] MEDS ORDERED: POTASSIUM CL SA 10 MEQ TAB PO ONE (09:00)
[2022-09-20 09:40] VITALS: O2SAT 96
[2022-09-20 09:44] VITALS: TEMP 98.2
[2022-09-20 11:14] VITALS: BP 118/63
--- NOTE | 2022-09-20 12:59 | P.DS ---
Admission Date: 09/19/22 Discharge Date: 09/20/22 Disposition: ROUTINE DISCHARGE Discharge Condition: GOOD Reason for Admission: Acute Appendicitis - RLQ pain Consultations: none Procedures: Laparoscopic appendectomy Brief History of Present Illness: see HPI Hospital Course: PAtient did well after surgery, tolerating diet, pain well controlled with PO pain meds, ambulatory. Vital Signs/Physical Exam: Temp Pulse Resp BP Pulse Ox 98.2 F 50 17 118/63 96 09/20/22 08:00 09/20/22 11:11 09/20/22 11:12 09/20/22 11:11 09/20/22 11:12 General: Alert, In no apparent distress, Cooperative HEENT: Normocephalic, Mucous membr. moist/pink Respiratory: Clear to auscultation bilaterally, Normal air movement Cardiovascular: Regular rate/rhythm Gastrointestinal: Other (soft, mild appropriate TTP, incisions clean and dry) Laboratory Data at Discharge: WBC 5.50 thou/uL (4.3-10.9) 09/20/22 03:35 Hgb 9.4 g/dL (12.0-15.0) L D 09/20/22 03:35 Hct 28.2 % (36.0-45.0) L 09/20/22 03:35 Plt Count 258 thou/uL (152-406) D 09/20/22 03:35 Sodium 137 mEq/L (136-145) 09/20/22 03:35 Potassium 3.8 mEq/L (3.5-5.1) 09/20/22 03:35 BUN 4 mg/dL (7-18) L 09/20/22 03:35 Creatinine 0.70 mg/dL (0.55-1.02) 09/20/22 03:35 Glucose 98 mg/dL (74-106) 09/20/22 03:35 Phosphorus 3.3 mg/dL (2.5-4.9) 09/20/22 03:35 Magnesium 2.0 mg/dL (1.6-2.4) 09/20/22 03:35 Total Bilirubin 0.7 mg/dL (0.2-1.0) 09/19/22 08:40 AST 12 U/L (15-37) L 09/19/22 08:40 ALT 15 U/L (13-56) 09/19/22 08:40 Alkaline Phosphatase 77 U/L (45-117) 09/19/22 08:40 Lipase 37 U/L (13-75) 09/19/22 08:40 Home Medications: Fluoxetine HCl [Prozac*] 10 mg PO DAILY 02/27/20 Zolpidem Tartrate [Ambien*] 5 mg PO BEDTIME 02/27/20 levoFLOXacin [Levaquin*] 750 mg PO DAILY #4 tab 02/29/20 metroNIDAZOLE [Flagyl] 500 mg PO Q8H #12 tablet 02/29/20 Diet: Regular Activity: No lifting more than 10 lbs Followup: Teja Burrows MD [Primary Care Provider] - Gal Espinoza MD [ACTIVE - CAN ADMIT] -
== END 2022-09-20 13:24 | disposition home or self-care (01) ==
LOC: ER 08:22 → ERHOLD 09:47 → 4TH 12:07
PROVIDERS: ADMIT Surgery; ATTEND Surgery
PROC: 0DTJ4ZZ Resection of Appendix, Percutaneous Endoscopic Approach (ICD-10-PCS; principal; 2022-09-19 14:15)
DX: K35.80 Unspecified acute appendicitis (principal); F41.9 Anxiety disorder, unspecified
CPT/HCPCS: 85025 ×2; 80048; 36415; 83735; 81025; 84100; 82947; 88304; 81003; 83690; 80053; 74177; 96375; 96374; 99285; 44970; Q9967; J2704; J2710; J2543 ×4; J2001; J2250; J1170; J3010 ×2; J2270 ×3; J2175; J2405 ×3; G0378 ×5; J7120; J7030

== ENCOUNTER 2022-10-28 07:34 | Day surgery (SDC) | payer OTHER ==
[2022-10-28] MEDS ORDERED: Ringers Lactate 1,000 ML IV ONE (08:02)
[2022-10-28] MEDS ORDERED: propofoL 200 MG/20 ML VIAL IV ONE ×2 (09:14→09:15)
[2022-10-28] MEDS ORDERED: LIDOCAINE 1% MPF 5 ML VIAL ONE (09:16)
[2022-10-28] MEDS ORDERED: ONDANSETRON 4 MG/2 ML VIAL ONE (09:16)
[2022-10-28 10:15] VITALS: BP 104/67; TEMP 97.8; O2SAT 99
== END 2022-10-28 10:12 | disposition home or self-care (01) ==
LOC: OR 07:34
PROVIDERS: ATTEND Surgery
PROC: 0DBH8ZX Excision of Cecum, Via Natural or Artificial Opening Endoscopic, Diagnostic (ICD-10-PCS; 2022-10-28)
PROC: 0DBH8ZX Excision of Cecum, Via Natural or Artificial Opening Endoscopic, Diagnostic (ICD-10-PCS; principal; 2022-10-28 08:45)
DX: Z12.11 Encounter for screening for malignant neoplasm of colon (principal); D3A.8 Other benign neuroendocrine tumors; I10 Essential (primary) hypertension; F32.A Depression, unspecified; F41.9 Anxiety disorder, unspecified; K64.8 Other hemorrhoids; Z90.49 Acquired absence of other specified parts of digestive tract
CPT/HCPCS: 81025; 88305; 45380 ×2; J2704 ×2; J2001; J2405; J7120

== ENCOUNTER 2024-01-04 14:53 | Emergency (ER) | payer OTHER ==
[2024-01-04] MEDS ORDERED: ACETAMINOPHEN 325 MG TABLET ONE (15:19)
[2024-01-04] MEDS ORDERED: HYDROCODONE/APAP 7.5/325 MG TAB ONE (15:20)
[2024-01-04] MEDS ORDERED: LIDOCAINE 2% W/EPI 1:200,000 MPF 20 ML VIAL IM ONE (15:26)
--- NOTE | 2024-01-04 15:27 | RAD REPORT ---
EXAM DESCRIPTION: CT - [id number] - 01/04/2024 3:11 pm CLINICAL HISTORY: Trauma, head and neck injury. head injury COMPARISON: No comparisons TECHNIQUE: Axial 5 mm thick images of the head were obtained. Axial 2 mm thick images of the cervical spine were obtained with sagittal and coronal reconstruction images generated and reviewed. All CT scans are performed using dose optimization technique as appropriate and may include automated exposure control or mA/KV adjustment according to patient size. FINDINGS: CT HEAD WITHOUT CONTRAST: No acute hemorrhage, hydrocephalus or extra-axial collection is identified.No areas of brain edema or midline shift. The paranasal sinuses and mastoids are clear.The calvarium is intact. There is a mild scalp hematoma left posteriorly. CT CERVICAL SPINE WITHOUT CONTRAST: Lucency is seen affecting the right posterior C1 arch. It is unclear if this represents a fracture or normal variant anatomy. Normal variant would be favored.No fracture or dislocation otherwise seen.No prevertebral soft tissues swelling is identified. IMPRESSION: No acute intracranial finding seen. Lucency affecting the right posterior C1 arch may be normal variant anatomy or related to fracture. M RI C-spine may be of value for further clarification.
--- NOTE | 2024-01-04 17:14 | RAD REPORT ---
EXAM DESCRIPTION: MRI - C Spine Wo Cont- 01/04/2024 4:56 pm CLINICAL HISTORY: fall Fall, neck injury, pain COMPARISON: No comparisons FINDINGS: Cervical vertebral bodies are normal in height and alignment. Mild diminished marrow signal is seen in the dens. No fracture or traumatic subluxation. The craniocervical junction is normal. C2-3 level: No significant findings. C3-4 level: No significant findings. C4-5 level: No significant findings. C5-6 level: No significant findings. C6-7 level: Small posterior osteophyte/disc complex. C7-T1 level: Small posterior osteophyte/ disc complex. Cervical cord is normal in size and signal. IMPRESSION: No acute finding is suspected.
[2024-01-04] MEDS ORDERED: MORPHINE 4 MG/ML SYR ONE (17:34)
--- NOTE | 2024-01-04 17:34 | ER ---
Nurse's Notes [facility] Name: Qing Ryan Age: 38 yrs Sex: Female : 1985 Arrival Date: 01/04/2024 Time: 14:53 Bed 14 Private MD: Diagnosis: Laceration without foreign body of scalp;Fall on same level, unspecified;Cervicalgia Presentation: 01/03 15:01 Chief complaint: Patient states: she was mopping the floor when she tripped over her kc6 puppy and fell backwards onto her head. denies LOC or blood thinners. Care prior to arrival: Cervical collar in place. Mechanism of Injury: Fall from standing position. Trauma event details: Injury occurred in the [facility], Injury occurred: at home. Injury occurred: January 04, 2024. 15:01 Acuity: JODIE 3 [facility] 15:01 Method Of Arrival: EMS [facility] 15:07 Coronavirus screen: At this time, the client does not indicate any symptoms associated [facility] with coronavirus-19. Ebola Screen: No symptoms or risks identified at this time. Initial Sepsis Screen: Does the patient meet any 2 criteria? No. Patient's initial sepsis screen is negative. Does the patient have a suspected source of infection? No. Patient's initial sepsis screen is negative. Risk Assessment: Do you want to hurt yourself or someone else? Patient reports no desire to harm self or others. Onset of symptoms was January 04, 2024. Trauma Activation: Not Applicable Physician: ED Physician; Name: ; Notified At: ; Arrived At: Physician: General Surgeon; Name: ; Notified At: ; Arrived At: Physician: Radiology; Name: ; Notified At: ; Arrived At: Physician: Respiratory; Name: ; Notified At: ; Arrived At: Physician: Lab; Name: ; Notified At: ; Arrived At: Historical: - Allergies: 15:07 No Known Allergies; kc6 - PMHx: 15:07 Anxiety; kc6 - PSHx: 15:07 Cholecystectomy; tubal ligation; Appendectomy; kc6 - Immunization history: Last tetanus immunization: - up to date. - Infectious Disease History:: Denies. - Social history:: Smoking status: Patient denies any tobacco usage or history of. Screenin:01 Abuse screen: Denies threats or abuse. Denies injuries from another. Tuberculosis kc6 screening: No symptoms or risk factors identified. 15:16 [facility] ED Fall Risk Assessment (Adult) History of falling in the last 3 months, kc6 including since admission No falls in past 3 months (0 pts) Confusion or Disorientation No (0 pts) Intoxicated or Sedated No (0 pts) Impaired Gait No (0 pts) Mobility Assist Device Used No (0 pt) Altered Elimination No (0 pt) Score/Fall Risk Level 0 - 2 = Low Risk. Nutritional screening: No deficits noted. Primary Survey: 15:01 NO uncontrolled hemorrhage observed. A: The client is awake and alert. The airway is kc6 patent. Breathing/Chest: Spontaneous respiratory effort, equal unlabored respirations, breath sounds clear bilaterally, regular pattern, symmetrical chest rise and fall. Circulation: No external hemorrhage present. Regular and strong central pulse, skin warm/dry/normal color. Disability Pupils are equal, round, reactive to light and accommodation. Exposure/Environment: All clothing and personal items were removed. Forensic evidence collection is not deemed to be indicated at this time. Items placed in patient belonging bag. There is no evidence of uncontrolled external bleeding. Obvious injury(ies) are noted at this time: pain to back of scalp and neck A warming method has been applied: A warm blanket has been provided to the patient. 16:44 Reassessment Alertness and Airway: Awake and alert. The airway is patent. Breathing: kc6 Spontaneous respiratory effort, equal unlabored respirations, breath sounds clear bilaterally, regular pattern with symmetrical chest rise and fall. Circulation: No external hemorrhage noted. Regular and strong central pulse, skin warm/dry/normal color. Disability: Pupils Pupils are equal, round, reactive to light and accomodation. Assessment: 15:01 General: Appears in no apparent distress. uncomfortable, well groomed, well developed, kc6 Behavior is calm, cooperative, appropriate for age, drowsy. Pain: Complains of pain in scalp Pain currently is 10 out of 10 on a pain scale. Neuro: Level of Consciousness is awake, alert, obeys commands, Oriented to person, place, time, situation, Appropriate for age. EENT: No signs and/or symptoms were reported regarding the EENT system. Cardiovascular: Capillary refill < 3 seconds. Respiratory: Airway is patent Trachea midline Respiratory effort is even, unlabored, Respiratory pattern is regular, symmetrical. GI: No signs and/or symptoms were reported involving the gastrointestinal system. : No signs and/or symptoms were reported regarding the genitourinary system. Derm: Skin is healthy with good turgor, Skin is pink, warm \T\ dry. Musculoskeletal: No signs and/or symptoms reported regarding the musculoskeletal system. Circulation, motion, and sensation intact. Capillary refill < 3 seconds, Range of motion: intact in all extremities. 15:32 Injury Description: Laceration sustained to scalp is clean, superficial, was sustained kc6 30-60 minutes ago. a small amount of bleeding noted at this time. 17:50 Reassessment: Patient appears in no apparent distress at this time. No changes from [facility] previously documented assessment. Patient and/or family updated on plan of care and expected duration. Pain level reassessed. Patient is alert, oriented x 3, equal unlabored respirations, skin warm/dry/pink. Patient states feeling better. Patient states symptoms have improved. Vital Signs: 15:01 BP 133 / 95; Pulse 74; Resp 16 S; Temp 98.4(O); Pulse Ox 100% on R/A; Weight 68.04 kg kc6 (R); Height 5 ft. 5 in. (R); Pain 10/10; 17:51 BP 133 / 89; Pulse 56; Resp 16 S; Pulse Ox 99% on R/A; kc6 15:01 Body Mass Index 24.96 (68.04 kg, 165.1 cm) 6 15:01 Pain Scale: Adult kc6 [place] Coma Score: 15:01 Eye Response: spontaneous(4). Motor Response: obeys commands(6). Verbal Response: kc6 oriented(5). Total: 15. 15:25 Eye Response: spontaneous(4). Motor Response: obeys commands(6). Verbal Response: cp oriented(5). Total: 15. Trauma Score (Adult): 15:01 Eye Response: spontaneous(1); Verbal Response: oriented(1); Motor Response: obeys kc6 commands(2); Systolic BP: > 89 mm Hg(4); Respiratory Rate: 10 to 29 per min(4); [place] Score: 15; Trauma Score: 12 ED Course: 14:57 Patient arrived in ED. kc6 14:58 Bg Engel MD is Attending Physician. sp3 14:59 Page, Ty, PA is PHCP. cp 15:01 Bella Boothe, RN is Primary Nurse. kc6 15:01 Patient has correct armband on for positive identification. Bed in low position. Call kc6 light in reach. Side rails up X2. Adult w/ patient. 15:01 Patient maintains SpO2 saturation greater than 95% on room air. kc6 15:03 Triage completed. kc6 15:07 Arm band placed on. kc6 15:13 CT Head C Spine In Process Unspecified. EDMS 15:17 Thermoregulation: warm blanket given to patient. kc6 16:57 C Spine Wo Cont In Process Unspecified. EDMS 17:51 No provider procedures requiring assistance completed. Patient did not have IV access kc6 during this emergency room visit. Administered Medications: 15:02 CANCELLED (Physician Discretion): hydrocodone-acetaminophen5 mg-325 mg 1 tabs PO once cp 15:28 Drug: Acetaminophen PO 650 mg PO once Route: PO; kc6 16:39 Follow up: Response: No adverse reaction kc 15:28 Drug: Hydrocodone-Acetaminophen PO (7.5 mg-325 mg) 1 tabs PO once; RASS on ADMIN: kc6 Combtv4, Very Agttd3, Agttd2, Rstlss1, AlertClm0, Drwsy-1, Lt Sdtn-2, Mod Sdtn-3, Dp Sdtn-4, UnArsble-5 Route: PO; 16:39 Follow up: Response: No adverse reaction; Pain is decreased; RASS: Alert and Calm (0) kc 16:39 Not Given (Patient Refused): yynywyxsv-pdzralwzjdm-8 % (1:100,000) 10 ml Infiltration kc6 once; to bedside 17:38 Drug: morphine IM 4 mg IM once Route: IM; Site: right deltoid; kc6 17:51 Follow up: Response: No adverse reaction; RASS: Alert and Calm (0) kc6 Medication: 17:52 VIS not applicable for this client. kc6 Outcome: 17:33 Discharge ordered by . cp 17:51 Discharged to home via wheelchair, with significant other, kc6 17:51 Condition: good 17:51 Discharge instructions given to patient, significant other, Instructed on discharge instructions, follow up and referral plans. no drinking with medication, no driving heavy equipment, medication usage, wound care, Demonstrated understanding of instructions, follow-up care, medications, wound care, Prescriptions given X 2, 17:52 Patient left the ED. kc6 Signatures: Dispatcher [employer] EDMS Ty Sotomayor PA PA cp Patel, Setul, MD MD sp3 Bella Boothe RN RN kc6 Corrections: (The following items were deleted from the chart) 15:33 15:01 Derm: No signs and/or symptoms reported regarding the dermatologic system. Skin kc6 is intact, is healthy with good turgor, Skin is pink, warm \T\ dry. kc6
--- NOTE | 2024-01-04 17:34 | EDPHYS ---
Physician Documentation [facility] Name: Qing Ryan Age: 38 yrs Sex: Female : 1985 Arrival Date: 01/04/2024 Time: 14:53 Bed 14 Private MD: ED Physician Bg Engel HPI: 01/03 15:15 This 38 yrs old Female presents to ER via EMS with complaints of Fall Injury. cp 15:15 Details of fall: The patient fell from an upright position, while standing, and struck cp a tile surface. Onset: The symptoms/episode began/occurred just prior to arrival. Associated injuries: The patient sustained injury to the head, laceration, of the scalp, pain, swelling, tenderness, neck injury, pain. 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 Historical: - Allergies: 15:07 No Known Allergies; kc6 - PMHx: 15:07 Anxiety; kc6 - PSHx: 15:07 Cholecystectomy; tubal ligation; Appendectomy; kc6 - Immunization history: Last tetanus immunization: - up to date. - Infectious Disease History:: Denies. - Social history:: Smoking status: Patient denies any tobacco usage or history of. ROS: 15:20 Constitutional: HX per HPI cp 15:20 Neck: Positive for pain with movement, tenderness, 15:20 Cardiovascular: Negative for chest pain, 15:20 Respiratory: Negative for cough, shortness of breath, wheezing, 15:20 Abdomen/GI: Negative for vomiting, diarrhea, constipation, 15:20 Back: Negative for pain at rest, pain with movement, 15:20 Neuro: Positive for headache, Negative for altered mental status, seizure activity, syncope, weakness, 15:20 All other systems are negative, Exam: 15:25 Constitutional: The patient appears in no acute distress, alert, awake, non-toxic, well cp developed, well nourished, uncomfortable, 15:25 Head/face: Noted is a laceration(s), that is linear, of the left side of the back of cp head, swelling, that is mild, tenderness, that is moderate, of the left side of the back of head, 15:25 Eyes: Periorbital structures: appear normal, Pupils: equal, round, and reactive to light and accomodation, Extraocular movements: intact throughout, Conjunctiva: normal, no exudate, no injection, Sclera: no appreciated abnormality, Lids and lashes: appear normal, bilaterally, 15:25 ENT: External ear(s): are unremarkable, Nose: is normal, Mouth: Lips: moist, Oral cp mucosa: moist, Posterior pharynx: Airway: no evidence of obstruction, patent, 15:25 Neck: C-spine: C-collar placed [employer], vertebral tenderness, that is mild, appreciated at C6 and C7, crepitus, is not appreciated, 15:25 Chest/axilla: Inspection: normal, Palpation: is normal, no crepitus, no tenderness, cp 15:25 Cardiovascular: Rate: normal, Rhythm: regular, JVD: is not appreciated, 15:25 Respiratory: the patient does not display signs of respiratory distress, Respirations: normal, no use of accessory muscles, no retractions, labored breathing, is not present, Breath sounds: are clear throughout, no decreased breath sounds, no stridor, no wheezing, 15:25 Abdomen/GI: Inspection: abdomen appears normal, Palpation: abdomen is soft and non-tender, in all quadrants, 15:25 Back: no vertebral tenderness to palpation, 15:25 Musculoskeletal/extremity: Exam is negative for decreased range of motion, deformity, Extremities: all appear grossly normal, with no appreciated pain with palpation, 15:25 Neuro: Orientation: to person, place \T\ time. Mentation: able to follow commands, Motor: moves all fours, strength is normal, Sensation: no obvious gross deficits, Vital Signs: 15:01 BP 133 / 95; Pulse 74; Resp 16 S; Temp 98.4(O); Pulse Ox 100% on R/A; Weight 68.04 kg kc6 (R); Height 5 ft. 5 in. (R); Pain 10/10; 17:51 BP 133 / 89; Pulse 56; Resp 16 S; Pulse Ox 99% on R/A; kc6 15:01 Body Mass Index 24.96 (68.04 kg, 165.1 cm) kc6 15:01 Pain Scale: Adult kc6 [place] Coma Score: 15:01 Eye Response: spontaneous(4). Motor Response: obeys commands(6). Verbal Response: kc6 oriented(5). Total: 15. 15:25 Eye Response: spontaneous(4). Motor Response: obeys commands(6). Verbal Response: cp oriented(5). Total: 15. Trauma Score (Adult): 15:01 Eye Response: spontaneous(1); Verbal Response: oriented(1); Motor Response: obeys kc6 commands(2); Systolic BP: > 89 mm Hg(4); Respiratory Rate: 10 to 29 per min(4); Mehreen Score: 15; Trauma Score: 12 Laceration: 17:31 Wound Repair of 1.5cm ( 0.6in ) subcutaneous laceration to scalp. Linear shaped.. cp Distal neuro/vascular/tendon intact. Anesthesia: Wound infiltrated with 5 mls of 2% lidocaine. Wound prep: Simple cleansing by me. Skin closed with 2 4-0 Prolene using simple sutures and sterile technique. Patient tolerated well. MDM: 14:58 Patient medically screened. sp3 15:45 Differential diagnosis: closed head injury, contusion, fracture, laceration, multiple cp trauma. 17:32 Data reviewed: vital signs, nurses notes, radiologic studies, CT scan, and as a result, I will discharge patient. 17:32 I considered the following discharge prescriptions or medication management in the emergency department Medications were administered in the Emergency Department. See MAR. Counseling: I had a detailed discussion with the patient and/or guardian regarding the historical points, exam findings, and any diagnostic results supporting the discharge/admit diagnosis, radiology results, to return to the emergency department if symptoms worsen or persist or if there are any questions or concerns that arise at home. Response to treatment: the patient's symptoms have markedly improved after treatment, and as a result, I will discharge patient. Special discussion: Based on the patient's history, exam and DX evaluation, there is no indication for emergent intervention or inpatient TX. It is understood by the patient/guardian that if the SXs persist or worsen they need to return immediately for re-evaluation. 01/03 15:00 Order name: CT Head C Spine; Complete Time: 15:38 01/03 15:38 Interpretation: Reviewed report. 01/03 15:47 Order name: C Spine Wo Cont; Complete Time: 17:16 EDMS Administered Medications: 15:02 CANCELLED (Physician Discretion): hydrocodone-acetaminophen5 mg-325 mg 1 tabs PO once 15:28 Drug: Acetaminophen PO 650 mg PO once Route: PO; kc6 16:39 Follow up: Response: No adverse reaction kc6 15:28 Drug: Hydrocodone-Acetaminophen PO (7.5 mg-325 mg) 1 tabs PO once; RASS on ADMIN: kc6 Combtv4, Very Agttd3, Agttd2, Rstlss1, AlertClm0, Drwsy-1, Lt Sdtn-2, Mod Sdtn-3, Dp Sdtn-4, UnArsble-5 Route: PO; 16:39 Follow up: Response: No adverse reaction; Pain is decreased; RASS: Alert and Calm (0) kc6 16:39 Not Given (Patient Refused): ymmzekxjk-hlogffvsfhi-4 % (1:100,000) 10 ml Infiltration kc6 once; to bedside 17:38 Drug: morphine IM 4 mg IM once Route: IM; Site: right deltoid; kc6 17:51 Follow up: Response: No adverse reaction; RASS: Alert and Calm (0) kc6 Disposition Summary: 01/04/24 17:33 Discharge Ordered Notes: Location: Home cp Problem: new cp Symptoms: have improved cp Condition: Stable cp Diagnosis - Laceration without foreign body of scalp cp - Fall on same level, unspecified cp - Cervicalgia cp Followup: cp - With: Private Physician - When: 2 - 3 days - Reason: Recheck today's complaints Discharge Instructions: - Discharge Summary Sheet cp - Head Injury, Adult cp - Laceration Care, Adult cp - Sutures, Tonya, or Adhesive Wound Closure cp Forms: - Medication Reconciliation Form cp - Antibiotic Education cp - Prescription Opioid Use cp - Patient Portal Instructions cp - Leadership Thank You Letter cp Prescriptions: - Anaprox DS 550 mg Oral Tablet - take 1 tablet ORAL route every 12 hours As needed; 20 tablet; Refills: 0, cp Product Selection Permitted - Cyclobenzaprine 10 mg Oral Tablet - take 1 tablet ORAL route every 8 hours As needed; 30 tablet; Refills: 0, cp Product Selection Permitted Signatures: Dispatcher [employer] EDMS Ty Sotomayor PA PA cp Bg Engel MD MD sp3 Bella Boothe RN RN kc6 Corrections: (The following items were deleted from the chart) 15:01 15:01 Head C Spine MPR Wo Con+CT.RAD.BRZ ordered. EDMS EDMS 15:02 15:00 HYDROcodone-acetaminophen PO 5 mg-325 mg 1 tabs PO once ordered. cp cp 01/04 16: 15:51 Constitutional: HX per HPI cp cp 16: 15:51 Cardiovascular: Negative for chest pain, cp cp 16: 15:51 Respiratory: Negative for cough, shortness of breath, wheezing, cp cp 16: 15:51 Abdomen/GI: Negative for vomiting, diarrhea, constipation, cp cp 16: 15:51 Neuro: Positive for headache, Negative for altered mental status, seizure cp activity, syncope, weakness, cp 16: 15:51 Back: Negative for pain at rest, pain with movement, cp cp 16: 15:51 Neck: Positive for pain with movement, tenderness, cp cp 16: 15:51 All other systems are negative, cp cp
[2024-01-04 17:56] VITALS: TEMP 98.4
[2024-01-04 17:58] VITALS: BP 133/89; O2SAT 99
== END 2024-01-04 17:52 | disposition home or self-care (01) ==
LOC: ER 14:53
PROC: 0JQ03ZZ Repair Scalp Subcutaneous Tissue and Fascia, Percutaneous Approach (ICD-10-PCS; principal; 2024-01-04)
DX: S01.01XA Laceration without foreign body of scalp, initial encounter (principal); W01.198A Fall on same level from slipping, tripping and stumbling with subsequent striking against other object, initial encounter; Y93.E5 Activity, floor mopping and cleaning; Y92.009 Unspecified place in unspecified non-institutional (private) residence as the place of occurrence of the external cause; M54.2 Cervicalgia
CPT/HCPCS: 12001; 70450; 72125; 72141; 96372; 99284